=== PATIENT | male | born 1940 | race Caucasian/White ===

== ENCOUNTER 2024-01-27 08:34 | Day surgery (SDC) | payer OTHER, SELFPAY ==
[2024-01-27] VITALS (12 sets, daily range): BP systolic 126–142; BP diastolic 66–79; BMI 26.8
--- NOTE | 2024-01-27 11:14 | ITS.CL.CATH ---
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
Cardiac Catheterization
Procedure Report:
CARDIAC CATHETERIZATION REPORT
Date of Procedure: 01/27/2024
Referring: Indra Webb MD
Indication: Symptomatic severe aortic stenosis
�
HEMODYNAMIC DATA
AO: 140/78
LV: 198/21
The mean gradient across the aortic valve is 52 mmHg
�
LEFT VENTRICULOGRAPHY: Normal left ventricular wall motion with EF 58%
�
CORONARY ANGIOGRAPHY
Dominance: Right
Left Main: Normal
LAD: The LAD is severly calcified with 50% proximal LAD stenosis just past the takeoff of a small D1. There is focal 70% mid LAD stenosis just distal to the takeoff of the large D2. The remainder of the LAD system has trivial luminal disease.
Circumflex: 20% mid circumflex stenosis distal to the takeoff of the large OM1. The circumflex gives rise to a large OM1 which has 20% proximal stenosis, small OM 2, and a very large OM 3 which has mild luminal irregularities. The circumflex
terminates with several small left posterolateral branches
RCA: Large dominant severely calcified vessel with no significant disease
�
Closure Device: None-the procedure was performed via the right radial artery. The Donato's test was normal prior to the procedure.
�
Radiation (mGy): 218
DAP (cm2.Gy): 18.6
Fluoroscopy time: 2.0 minutes
�
CONCLUSIONS
1:�Severe aortic stenosis with mean gradient 52 mmHg
2:�Normal left ventricular function with EF 58%
3. Single-vessel CAD as described-there is 50% proximal LAD stenosis and 70% stenosis immediately distal to the takeoff of the large second diagonal branch
4. Recommend medical therapy for CAD and proceed with transcatheter aortic valve replacement workup
�
�
Copy to: Indra Webb MD, Clarisa Ramos MD
�
Adam Doe MD, MERGED WITH [facility]
--- NOTE | 2024-01-27 11:59 | CONSULT.STRU ---
Consultation
-
Date/Time Consultation Requested: 01/27/2024
Date/Time Consultation Performed: 01/27/2024
Requesting Provider: Adam Doe MD
Performing Provider: JAX Bravo
Reason for Consultation: /TAVR
Patient History
Physicians
Family Physician: JAX Galindo
Outpatient Artificial Flowers Dyer: Indra Webb MD
Primary Artificial Flowers Dyer: Indra Webb MD
History of Present Illness
Mr. Colbert is a very pleasant 83 yom that presents with severe symptomatic associated with STREETER and fatigue noticeably worse over the last 3 months. His echocardiogram from 01/27/2024 is notable for an EF 55-60%, AV P/M 70/45, WARREN 0.9, pk mihai
4.19, trivial AI, mild to moderate MAC, trace MR, trivial TR, RVSP 26. Cath findings significant for Single-vessel CAD as described-there is 50% proximal LAD stenosis and 70% stenosis immediately distal to the takeoff of the large second diagonal
branch, AV MG 52mmHg. Discussed the pathophysiology and treatment options of including SAVR and TAVR. Explained the evaluation process comprising of CT scan, CT surgical consult, dental clearance, and a heart team discussion. TAVR booklet,
appointments, prescriptions, and contact information given to patient. Allowed for and answered questions at bedside.
Past Medical History
Past Medical History: Atrial Fib (PAF (C2V: 4)), HTN, Valvular Disease (Aortic stenosis) and Other ((L) carotid stenosis, hyperlipidemia, venous insufficiency, varicose veins, hyponatremia, pleural effusions)
Past Surgical History
Past Surgical History: Appendectomy, Tonsilectomy and Other (Stripping and ligation on LLE)
Dental History
Dr. Benny Hoffman- [facility]-dental form faxed
Family History
Mother: at Age (75) and Cause of (COPD)
Father: at Age (77) and Cause of (Stroke)
Family Medical History: Cancer
Social History
Alcohol: Occasional
Drug: None
Tobacco: Non-Smoker
Personal:
Living: With Spouse
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
Allergies
NKDA
Home Medications
Aspirin 81 MG Tablet Delayed Release 1 tablet Orally Once a day
Atorvastatin Calcium 40 MG Tablet 1 tablet Orally Once a day
Calcium + D(Calcium-Vitamin D-Vitamin K) 500-1000-40 MG-UNT-MCG Tablet Chewable as directed Orally Once a Day
Eliquis(Apixaban) 5 MG Tablet TAKE 1 TABLET Twice a day
Metoprolol Succinate ER 100 MG Tablet Extended Release 24 Hour 1 tablet Orally Once a day
Sodium Chloride , Notes to Pharmacist: 1 gram 4 times a day
STS%
STS %: 2.59
Review of Systems
-
History Source: Patient
General: Reports Fatigue
HEENT: Reports No Symptoms
Respiratory: Reports STREETER
Cardiac: Reports No Symptoms
Abdomen/GI: Reports No Symptoms
: Reports No Symptoms
Musculoskeletal: Reports No Symptoms
Skin: Reports No Symptoms
Neurological: Reports No Symptoms
Physical Exam
Vital Signs
Pulse 74 01/27/24 08:51
Resp Rate 18 01/27/24 08:51
Blood pressure 126/79 01/27/24 08:51
Can the patient verbally communicate their pain? Yes 01/27/24 08:51
Actual Weight 77.5 kg 01/27/24 08:51
Body Mass Index (BMI) 26.8 01/27/24 08:51
Labs
01/20/2024
HH: 13.1/38.5
Plt: 130K
BUN/Creatinine: 11/0.85
GFR: >60
Diagnostic Studies
ECHOCARDIOGRAM 01/08/2024:
CONCLUSIONS
1. Normal chamber sizes.
2. Severe aortic stenosis
3. Normal left and right ventricular systolic function.
4. Normal right ventricular systolic pressure.
Aortic Valve
Thickened/calcified and deformed aortic valve that exhibits decreased opening.
Trivial aortic insufficiency. Peak aortic valve gradient is 70 mmHg with a
mean gradient of 45 mmHg. The aortic valve area calculated by continuity is
0.9 cm2. These findings are suggestive of severe stenosis
CARDIAC CATHETERIZATION 01/27/2024:
CONCLUSIONS
1:�Severe aortic stenosis with mean gradient 52 mmHg
2:�Normal left ventricular function with EF 58%
3. Single-vessel CAD as described-there is 50% proximal LAD stenosis and 70% stenosis immediately distal to the takeoff of the large second diagonal branch
4. Recommend medical therapy for CAD and proceed with transcatheter aortic valve replacement workup
Exam
General: Well Developed, Well Nourished and No Apparent Distress
HEENT: Normocephalic
Respiratory: Clear
Cardiac: Irregular Rhythm and Murmur (IV/ ART)
GI: Soft, Non Tender and Non Distended
Rectal: Deferred by Provider
Skin: Warm and Dry
Neuro: Awake, Alert, Oriented and AO x 3
Psych: Calm
Assessment / Plan
-
Severe aortic stenosis
Continue TAVR evaluation
Trend creatinine after contrast (Rx given)
CT TAVR (02/09)
CT surg consult ( [facility] 02/09)
Frailty testing and KCCQ12 at consult
Dental clearance (form faxed)
Will hold Eliquis x 48 before TAVR
Heart team discussion
Data Reviewed
-
Entertainment & Media Correspondent: Report Reviewed by me and Discussed with Physician
Echo: Report Reviewed by me and Discussed with Physician
Labs: Labs Reviewed by me
Old Records: Reviewed (Office note from Dr. Webb and Dr. Doe)
Total Time Spent with Patient (in minutes): 45
== END 2024-01-27 14:39 | disposition home or self-care (01) ==
LOC: CATH 08:34
PROVIDERS: ATTENDING PHYSICIAN Internal Medicine Cardiovascular Disease; FAMILY PHYSICIAN Nurse Practitioner Family; OTHER PHYSICIAN Internal Medicine Cardiovascular Disease
DX: I35.0 Nonrheumatic aortic (valve) stenosis (principal); R06.09 Other forms of dyspnea; R53.83 Other fatigue; I25.10 Atherosclerotic heart disease of native coronary artery without angina pectoris; E87.1 Hypo-osmolality and hyponatremia; E78.5 Hyperlipidemia, unspecified; I48.0 Paroxysmal atrial fibrillation; I10 Essential (primary) hypertension; J90 Pleural effusion, not elsewhere classified; I65.22 Occlusion and stenosis of left carotid artery; I87.2 Venous insufficiency (chronic) (peripheral); I83.90 Asymptomatic varicose veins of unspecified lower extremity; Z82.3 Family history of stroke; Z79.01 Long term (current) use of anticoagulants; Z79.899 Other long term (current) drug therapy; Z79.82 Long term (current) use of aspirin
CPT/HCPCS: 93458; Q9967

== ENCOUNTER → 2024-02-10 09:40 | Outpatient (REF) | payer OTHER, SELFPAY | LOC: RAD 09:40 | PROVIDERS: ATTENDING PHYSICIAN Nurse Practitioner Acute Care; FAMILY PHYSICIAN Nurse Practitioner Family | DX: I35.0 Nonrheumatic aortic (valve) stenosis (principal) | CPT/HCPCS: 74174; 75572; Q9967 ==

== ENCOUNTER 2024-04-02 05:23 | Inpatient (IN) | payer OTHER, SELFPAY ==
--- NOTE | 2024-03-23 16:14 | HPS.HSE ---
Family Physician
-
Family Physician: Clarisa Ramos
Chief Complaint
-
STREETER and Fatigue
PreTAVR
History of Present Illness
Mr. Colbert is a very pleasant 83 yom that presents with severe symptomatic associated with STREETER and fatigue noticeably worse over the last 3 months. His echocardiogram from 01/27/2024 is notable for an EF 55-60%, AV P/M 70/45, WARREN 0.9, pk mihai
4.19, trivial AI, mild to moderate MAC, trace MR, trivial TR, RVSP 26. Cath findings significant for Single-vessel CAD as described-there is 50% proximal LAD stenosis and 70% stenosis immediately distal to the takeoff of the large second diagonal
branch, AV MG 52mmHg. Patient was reviewed and evaluated by the heart team. The team recommended TF TAVR utilizing a 29mm S3.
Confirmed medication list with Mr. Colbert. He will hold Eliquis x 48 hours (last dose Wednesday 03/29, pm dose), and continue aspirin including the morning of TAVR. He will [facility] to [facility] the [facility] at 0530. Reviewed
risks of the procedure as discussed in consult with Dr. Giron including stroke, ppm, and vascular injury. Informed patient that he will receive a phone call from the heart team on Friday before TAVR. Allowed for and answered questions.
Medical History
Past Medical History
Past Medical History: Reports HTN, Valvular Disease (aortic stenosis) and Other (Venous insufficiency, Bilateral carotid bruits, hyponatremia, varicose veins, moderate (L) carotid stenosis, pleural effusions)
Past Surgical History: Reports Appendectomy, Tonsilectomy and Other (Stripping and ligation on (L) leg, oral surgery)
Social History
Tobacco: Non-smoker
Alcohol: Daily (one glass of wine)
Drug: None
Personal:
Living: With Family
Employment: Retired
Family History
Family History: Cancer
Allergies / Home Medications
Allergies reflects when Allergies were last updated in [facility].
Aspirin 81 MG Tablet Delayed Release 1 tablet Orally Once a day
Atorvastatin Calcium 40 MG Tablet 1 tablet Orally Once a day
Calcium + D(Calcium-Vitamin D-Vitamin K) 500-1000-40 MG-UNT-MCG Tablet Chewable as directed Orally Once a Day
Eliquis(Apixaban) 5 MG Tablet TAKE 1 TABLET Twice a day
Metoprolol Succinate ER 100 MG Tablet Extended Release 24 Hour 1 tablet Orally Once a day
Sodium Chloride 1 GM Tablet as directed Orally Four times a day 2000 mg, Notes to Pharmacist: 2000mg four times a day
Home Medications with original date entered in [facility]
Allergy/Medication List:
NKDA
Review of Systems
-
History Source: Patient
Constitutional: Reports Fatigue
EENT: Reports No Symptoms
Respiratory: Reports Trouble Breathing (STREETER)
Cardiac: Reports No Symptoms
Abdomen/GI: Reports No Symptoms
: Reports No Symptoms
Musculoskeletal: Reports No Symptoms
Skin: Reports No Symptoms
Neurological: Reports No Symptoms
Endocrine: Reports No Symptoms
Hematologic/Lymphatic: Reports No Symptoms
Psych: Reports No Symptoms
Physical Exam
Physical Exam
General: Well Developed, Well Nourished, No Apparent Distress and Comfortable
HEENT: NormoCephalic
Respiratory: Clear
Cardiac: Regular Rhythm and Murmur (IV/ ART)
Breast: N/A
GI: Soft and Non Tender
Rectal: Deferred by Provider
Genito-urinary: Deferred by me
Musculoskeletal: Edema, Left Lower Extremity
Skin: Warm and Dry
Neuro: Awake, Alert and Oriented
Psych: Calm
Data Reviewed
-
CT Scan: Report Reviewed by me and Discussed with Physician (TAVR CT scan reviewed and discussed with the heart team)
Medical Tests (Nuc Med, Echo, EKG etc): Report Reviewed by me and Discussed with Physician (Echocardiogram and cardiac catheterization reviewed and discussed with the heart team)
Lab Data: Labs Reviewed by me
Old Records: Reviewed
Impression/Plan
-
IMPRESSION/PLAN:
Aortic stenosis
TF TAVR planned with Drs. Thomas and Mack georgezing a 29 mm S3 via (R) transfemoral access
Eliquis held x 48 hours (last dose Friday 2/3 pm). Will resume post TAVR
Continue Aspirin including the morning of TAVR
POD#1/#30 echocardiogram
Cardiac rehab consult
Lab Results
-
Lab Results
WBC 4.7 10^3/uL (4.8-10.8) L 03/24/24 12:41
RBC 3.79 10^6/uL (4.70-6.10) L 03/24/24 12:41
Hgb 12.3 g/dL (13.0-18.0) L 03/24/24 12:41
Hct 36.1 % (39.0-52.0) L 03/24/24 12:41
MCV 95.3 fL (80.0-94.0) H 03/24/24 12:41
MCH 32.5 pg (27.0-31.0) H 03/24/24 12:41
MCHC 34.1 g/dL (33.0-37.0) 03/24/24 12:41
RDW 12.7 % (11.5-14.5) 03/24/24 12:41
Plt Count 127 10^3/uL (130-400) L 03/24/24 12:41
MPV 10.3 fL (7.4-10.4) 03/24/24 12:41
Abs Immat Gran (auto) 0.0 10^3/uL (0-0.05) 03/24/24 12:41
Absolute Neuts (auto) 2.6 10^3/uL (1.4-6.5) 03/24/24 12:41
Absolute Lymphs (auto) 1.2 10^3/uL (1.2-3.4) 03/24/24 12:41
Absolute Monos (auto) 0.6 10^3/uL (0.1-0.6) 03/24/24 12:41
Absolute Eos (auto) 0.2 10^3/uL (0-0.7) 03/24/24 12:41
Absolute Basos (auto) 0.0 10^3/uL (0-0.2) 03/24/24 12:41
Immature Gran % 0.2 % (0-0.5) 03/24/24 12:41
Neutrophils % 56.7 % (42.2-75.2) 03/24/24 12:41
Lymphocytes % 26.6 % (20.5-51.1) 03/24/24 12:41
Monocytes % 11.8 % (1.7-9.3) H 03/24/24 12:41
Eosinophils % 4.1 % (0-6) 03/24/24 12:41
Basophils % 0.6 % (0-2) 03/24/24 12:41
Nucleated RBC % 0 % (-) 03/24/24 12:41
PT 15.6 Sec (11.4-14.6) H 03/24/24 12:41
INR 1.19 03/24/24 12:41
APTT 38.3 Sec (23.4-35.0) H 03/24/24 12:41
Urine Color Yellow 03/24/24 12:49
Urine Clarity Clear (Clear) 03/24/24 12:49
Urine pH 7.0 (5.0-9.0) 03/24/24 12:49
Ur Specific [place] 1.010 (<1.030) 03/24/24 12:49
Urine Ketones Negative (Negative) 03/24/24 12:49
Ur Occult Blood Reflex Negative (Negative) 03/24/24 12:49
Urine Nitrite (Reflex) Negative (Negative) 03/24/24 12:49
Urine Bilirubin Negative (Negative) 03/24/24 12:49
Urine Urobilinogen Negative (Neg - 1+) 03/24/24 12:49
Leukocyte Esterase Rfl Negative (Negative) 03/24/24 12:49
Urine Glucose Negative (Negative) 03/24/24 12:49
Urine Albumin (Reflex) Negative (Neg - Trace) 03/24/24 12:49
[2024-03-24 12:32] VITALS: BMI 26.0
[2024-03-24 13:18] LABS: Urine Albumin Negative (Neg - Trace); Urine Bilirubin Negative (Negative); Urine Character Clear (Clear); Urine Color Yellow; Urine Glucose Negative (Negative); Urine Ketone Negative (Negative); Urine Leukocyte Negative (Negative); Urine Nitrite Negative (Negative); Urine Occult Blood Negative (Negative); Urine Urobilinogen Negative (Neg - 1+)
[2024-03-24 13:24] LABS: % Basophils 0.6 % (0-2); % Eosinophils 4.1 % (0-6); % Immature Granulocytes 0.2 % (0-0.5); % Lymphocytes 26.6 % (20.5-51.1); % Monocytes 11.8 % (1.7-9.3); % Neutrophils 56.7 % (42.2-75.2); Absolute Eosinophils 0.2 10^3/uL (0-0.7); Absolute Lymphocytes 1.2 10^3/uL (1.2-3.4); Absolute Monocytes 0.6 10^3/uL (0.1-0.6); Absolute Neutrophils 2.6 10^3/uL (1.4-6.5); Hematocrit 36.1 % (39.0-52.0); Hemoglobin 12.3 g/dL (13.0-18.0); Mean Corp Hgb Conc. 34.1 g/dL (33.0-37.0); Mean Corpuscular Hgb 32.5 pg (27.0-31.0); Mean Corpuscular Volume 95.3 fL (80.0-94.0); Mean Platelet Volume 10.3 fL (7.4-10.4); Nucleated Red Blood Cells % 0 % (-); Platelet Count 127 10^3/uL (130-400); Red Blood Cell Count 3.79 10^6/uL (4.70-6.10); Red Cell Dist. Width 12.7 % (11.5-14.5); White Blood Cell Count 4.7 10^3/uL (4.8-10.8)
[2024-03-24 13:33] LABS: INR 1.19; PT 15.6 Sec (11.4-14.6)
[2024-03-24 13:34] LABS: APTT 38.3 Sec (23.4-35.0)
[2024-03-24 14:08] LABS: NT-proBNP 2630 pg/ml
[2024-03-24 14:31] LABS: Glycohemoglobin (HgbA1c) 4.7 % (4.0-5.6)
[2024-03-24 14:43] LABS: ALT (SGPT) 24 U/L (0-50); AST (SGOT) 34 U/L (17-59); Albumin 4.1 g/dl (3.5-5.0); Alkaline Phosphatase 83 U/L (38-126); Blood Urea Nitrogen 9 mg/dl (9-20); Calcium 8.6 mg/dl (8.4-10.2); Carbon Dioxide 28 mmol/L (22-30); Chloride 95 mmol/L (98-107); Estimated Creatinine Clearance 79 ml/min; Glucose 129 mg/dl (70-99); Potassium 4.5 mmol/L (3.5-5.1); Sodium 131 mmol/L (135-145); Total Bilirubin 1.2 mg/dl (0.2-1.3); Total Protein 6.8 g/dl (6.3-8.2); eGFR > 60.00
--- NOTE | 2024-03-24 15:12 | CM ---
Chart reviewed. Met with the patient and his in a PAT. Reviewed preoperative and postoperative instructions and restrictions, along with showering guidelines. Gave patient 2 soaps. Patient is agreeable to a home visit by CT Transitional
RN. 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 Plan is for the patient to return home with CT Transitional RN.
[2024-04-02] VITALS (21 sets, daily range): BP systolic 95–176; BP diastolic 51–80; BMI 25.1
--- NOTE | 2024-04-02 06:12 | PTCARENOTE ---
SDA to IVU for TAVR. L and R B\P obtained. Pt shave and CHG wipes used. ABO sent. Tele strip obtained. Neuro intact.
--- NOTE | 2024-04-02 06:24 | W.CVOR.SURPR ---
CVOR Surgeon Immed Pre Op
-
I have examined this patient prior to performance of the scheduled procedure.
The patient's condition is unchanged from the time of the dictated/written History and
Physical and the patient is able to undergo the scheduled procedure.
[2024-04-02 08:22] LABS: ACT-LR - POC 345 Seconds (116-155)
--- NOTE | 2024-04-02 08:43 | W.IMMPOSTOP ---
Addendum entered and electronically signed by Orville Giron MD 04/02/24 09:07:
[id number]
Original Note:
Surgical Immed Post Op Note
-
STRUCTURAL HEART PROCEDURE NOTE: TAVR
Preoperative Dx:
Severe aortic stenosis (P/M: 70/45, WARREN 0.9, Finishing Area Supervisor 4.19, trivial AI)
Left carotid stenosis
PAF on Eliquis
HTN/HLD
Venous insufficiency s/p stripping and ligation LLE
Hyponatremia
Pleural effusion
Postoperative Dx:
Same
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
Procedures:
1) L CFV access w/ U/S and fluoroscopic guidance, micropuncture technique, 6Fr sheath placement
2) L EDUCATION AND TRAINING MANAGER access w/ tactile, U/S, and fluoroscopic guidance, micropuncture technique, limited angiography, 6Fr sheath placement
3) Placement of temporary RV pacing wire, threshold testing
4) Placement of pigtail catheter in RCC w/ limited aortography & confirmation of co-planar valve deployment angles
5) R EDUCATION AND TRAINING MANAGER access w/ tactile, U/S, and fluoroscopic guidance, micropuncture technique, limited angiography, 6Fr sheath placement.
6) 8Fr dilator & perclose placement x 2 into R EDUCATION AND TRAINING MANAGER; 8Fr sheath placement
7) Placement of Sims E-sheath via R EDUCATION AND TRAINING MANAGER (systemic heparinization)
8) Wire purchase across stenotic AV (AL-1, soft-tip straight, table-J, LVEDP assessment, extra-stiff)
9) R TF TAVR w/ placement of 29mm CHRIS 3
10) Completion aortography
11) Completion TTE (mean gradient 3mmHg, trace PVL)
12) Removal of valve delivery system & Sims E-sheath w/ R EDUCATION AND TRAINING MANAGER mgmt w/ perclose x 2, 6Fr angioseal x 1, manual pressure
13) Completion R ileofemoral angiography
14) Removal of temporary pacing wire
15) Removal of L EDUCATION AND TRAINING MANAGER 6Fr sheath w/ mgmt w/ 6Fr angioseal; manual pressure
16) Removal of L CFV 6Fr sheath w/ mgmt w/ manual pressure
Escrow Representative:
Dr. Ritesh Thomas
Cardiac Surgeon:
Dr. Orville Giron
Anesthesia:
MAC & local w/ conversion to LMA
Complications:
None
Implants:
Perclose x 2 R EDUCATION AND TRAINING MANAGER
6Fr angioseal x 1 R EDUCATION AND TRAINING MANAGER
6Fr angioseal x 1 L EDUCATION AND TRAINING MANAGER
Sims [employer], CHRIS 3 valve 29mm; SN [id number]
Cath Data:
Start: 0747hrs, Deploy: 0823hrs, End: 0839hrs
FT: 11.8min, mGy: 231.91, DAP: 25.0501, Contrast: 107
Post TTE: trace PVL, mean gradient 3mmHg
LVEDP: 26
Condition:
Stable/guarded
--- NOTE | 2024-04-02 09:52 | ITS.CL.PN ---
Insulation Worker Furnace Installer - Procedure Note
Procedure
Procedure Note:
TRANSCATHETER AORTIC VALVE REPLACEMENT REPORT
Date of Procedure: 04/02/2024
Referring: Dr. Indra Webb MD
Indication: Symptomatic severe aortic stenosis
Operators: Ritesh Thomas MD, PhD (interventional cardiology); Dr. Orville Giron MD (CT surgery)
Anesthesia: conscious sedation provided by the anesthesia staff
PROCEDURE: transfemoral, transcatheter aortic valve replacement with a 29 mm Sims CHRIS S3 Ultra
ACCESS:
1. 6F left femoral vein (closure: manual hemostasis)
2. 6F left common femoral artery (closure: Angioseal)
3. 16 F right common femoral artery (closure: Perclose x2)
ULTRASOUND GUIDED VASCULAR ACCESS (left common femoral artery): Ultrasound was utilized for vascular access. The vessel was visualized under ultrasound and noted to be patent. An image of the vessel was stored permanently in the patient's medical
record. Under direct ultrasound guidance, vascular access was obtained using a modified Seldinger technique and a 6 Macedonian sheath was placed.
ULTRASOUND GUIDED VASCULAR ACCESS (left femoral vein): Ultrasound was utilized for vascular access. The vessel was visualized under ultrasound and noted to be patent. An image of the vessel was stored permanently in the patient's medical record.
Under direct ultrasound guidance, vascular access was obtained using a modified Seldinger technique and a 6 Macedonian sheath was placed.
ULTRASOUND GUIDED VASCULAR ACCESS (right common femoral artery): Ultrasound was utilized for vascular access. The vessel was visualized under ultrasound and noted to be patent. An image of the vessel was stored permanently in the patient's medical
record. Under direct ultrasound guidance, vascular access was obtained using a modified Seldinger technique and a 6 Macedonian sheath was placed.
HEMODYNAMIC DATA
LV 28 mmHg
PROCEDURE NARRATIVE:
The patient was prepped and draped in standard sterile fashion. Conscious sedation was provided by the anesthesia staff. 6F left femoral vein and left common femoral artery access was obtained with ultrasound guidance using micropuncture technique
with verification of appropriate arteriotomy location via hand injection angiography. A temporary venous pacing wire was advanced via the left femoral vein to the right ventricle under fluoroscopic guidance with appropriate capture verified. A 5F
pigtail catheter was advanced via the left common femoral artery and seated in the right coronary cusp. Angiography was performed to verify the co-planar angle.
8F right common femoral artery access was obtained with ultrasound guidance using micropuncture technique with verification of appropriate arteriotomy location via hand injection angiography. The arteriotomy was preclosed with two Perclose sutures
followed by replacement of the 8F sheath. Using an AL1 catheter, an Amplatz Superstiff wire was placed in the descending thoracic aorta. The 8F sheath was removed and the 16 F Sims E-sheath was inserted over the Superstiff wire and into the
descending aorta. Heparin 6500 units was given. The AL1 catheter was re-advanced through the E-sheath to the level of the ascending aorta. The Superstiff wire was exchanged for a soft tipped straight wire which was used to cross the aortic valve and
deposit the AL1 in the LV apex. A J-wire was used to exchange the AL1 for a pigtail catheter in the LV and LVEDP was measured at 26 mmHg. An Amplatz Extrastiff wire with curved proximal end was advanced through the pigtail catheter and seated in the
LV apex. ACT was checked and confirmed to be >250 seconds.
The valve was brought to the table with orientation and deployment contrast volume verified. The valve was advanced over the Extrastiff wire and into the descending aorta. The balloon was withdrawn, and the valve was mounted on the balloon. The
valve was advanced over the aortic arch and into the aortic valve annulus. The pusher device was withdrawn. Low volume aortography confirmed valve positioning. The valve was deployed during rapid ventricular pacing. The balloon was walked back to
the descending aorta while leaving the wire in place. The patient was resuscitated by anesthesia with recovery of adequate blood pressure. Telemetry demonstrating stable left bundle branch block and sinus rhythm. Aortography demonstrated good valve
positioning, adequate coronary filling, and trace aortic valve insufficiency. Echocardiography confirmed trace aortic insufficiency. Mean valve gradient was 3 mmHg. The valve deployment system was removed.
The Sims E sheath was removed, and hemostasis obtained with the two Perclose sutures. Protamine 40 units was given. Aortoiliac angiography demonstrated no evidence of iliofemoral dissection/perforation and good runoff below the common femoral
artery bilaterally. The pacemaker and the pigtail catheter were removed. The left femoral artery sheath was removed using a 6F Angioseal. The left femoral venous sheath was removed with manual pressure.
RADIATION: dose 231 mGy; DAP 25 Gy*cm2
CONCLUSIONS
1. successful placement of an Sims CHRIS S3 Ultra 29 mm transcatheter aortic valve via right transfemoral approach with no acute complications
2. acute on chronic heart failure with elevated filling pressures (LVEDP = 26)
Copy to: Dr. Indra Webb MD (business process architect); JAX Galindo (PCP)
Signed: Ritesh Thomas MD, PhD
--- NOTE | 2024-04-02 10:45 | CM ---
Chart reviewed. Patient is independent of ADLS, lives with his in a [address], total of 8 ADDI, 0 DME. Plan is for the patient to return home with CT Transitional RN. CM to follow
--- NOTE | 2024-04-02 11:31 | W.PN.UPDATE ---
Update Note
Progress Note Update
Reviewed [employer] monitor with patient's . Went over how to apply, charge, report symptoms and return the monitor after the 14 day period. Allowed for and answered questions
--- NOTE | 2024-04-02 12:25 | PTCARENOTE ---
Received pt post TAVR. NIH scale and neuro checks negative. GCS 15. B/L groin sites w/ clean and dry 4x4 with tegaderns. Left groin dressing w/ old small amout of blood noted, unchanged and marked. VSS. Pt very sleepy. Will monitor.
[2024-04-02] MEDS: ANCEF 10 IV ×2 (14:19)
[2024-04-02] MEDS: LIPITOR 40 MG PO (14:20)
[2024-04-02] MEDS: ANCEF 5 IV (14:56)
[2024-04-02] MEDS: SODIUM CHLORIDE 2 GRAM PO (19:41)
--- NOTE | 2024-04-02 20:16 | PTCARENOTE ---
pt received at change of shift. pt seen and assessed in room. b/l groins checked. L groin w minimal sanguineous drainage, R groin c/d/i. No complaints of pain from pt at this time. Tele reading NSR. Pt. AOx3, neuro checks completed. This RN
discussed POC, pt verbalizes understanding. Call hernandez within reach. Continuing to monitor at this time.
[2024-04-03] VITALS (13 sets, daily range): BP systolic 112–177; BP diastolic 53–109; PULSE 87; O2SAT 95–96; BMI 25.1
[2024-04-03 03:08] LABS: Hematocrit 33.3 % (39.0-52.0); Hemoglobin 11.8 g/dL (13.0-18.0); Mean Corp Hgb Conc. 35.4 g/dL (33.0-37.0); Mean Platelet Volume 10.2 fL (7.4-10.4); Platelet Count 124 10^3/uL (130-400); Red Blood Cell Count 3.58 10^6/uL (4.70-6.10); Red Cell Dist. Width 12.5 % (11.5-14.5); White Blood Cell Count 6.3 10^3/uL (4.8-10.8)
[2024-04-03] MEDS: APRESOLINE 5 MG IV (03:17)
[2024-04-03 03:19] LABS: Blood Urea Nitrogen 12 mg/dl (9-20); Calcium 8.4 mg/dl (8.4-10.2); Carbon Dioxide 22 mmol/L (22-30); Chloride 97 mmol/L (98-107); Estimated Creatinine Clearance 92 ml/min; Glucose 110 mg/dl (70-99); Potassium 4.2 mmol/L (3.5-5.1); Sodium 129 mmol/L (135-145); eGFR > 60.00
--- NOTE | 2024-04-03 06:21 | W.PN.CT ---
Addendum entered and electronically signed by Orville Giron MD 04/03/24 09:16:
I saw and examined the patient.
The PA's note was reviewed and I agree with the note.
Comment:
POD#1 s/p R TF TAVR w/ 29 S3
No issues. 1AVB and LBBB resolved.
Pt. w/ known chronic hyponatremia (typically low 130s) - given additional sodium
Echocardiogram today
Restart Eliquis
Rhythm Star on D/C
D/C home later today
Original Note:
Today's Communication / Plan
-
-pod #1
-no issues overnight
-nsr 70s, occasional PVCs. No juliette or pauses
-new transient 1st degree AVB and LBBB-both resolved. ECG this am appears at baseline.Toprol held post TAVR.
-Na 129 (131 preop)- fluid restriction
-Echo today
-current meds (ASA, Lipitor). Restart Eliquis for paf
-Rhythm Star monitor was left in pt's room
-encourage IS, OOB
-possible discharge
Assessment / Plan
-
- Severe symptomatic - s/p R TF TAVR w/ placement of 29mm CHRIS 3 on 04/02/24, pod #1
- Post TTE: trace PVL, mean gradient 3mmHg
- Acute on Chronic combined systolic/diastolic CHF w/ elevated LVEDP 26
- Left carotid stenosis
- PAF on Eliquis
- HTN/HLD
- Venous insufficiency- s/p stripping and ligation LLE
- Hyponatremia
- Pleural effusion
- Hyponatremia
- Acute transient postop 1st degree AVB and LBBB
Discussed patient care with: Nursing and Care Team
Subjective
Procedure
- s/p R TF TAVR w/ placement of 29mm CHRIS 3 on 04/02/24
-
Date of Service: April 02, 2024
Objective Data
-
Lab Results
03/24/24 12:41
03/24/24 12:41
PT 15.6 Sec (11.4-14.6) H 03/24/24 12:41
INR 1.19 03/24/24 12:41
APTT 38.3 Sec (23.4-35.0) H 03/24/24 12:41
Vital Signs
Vital Signs
Temp Pulse Resp BP Pulse Ox
98.4 F 79 20 165/80 99
04/02/24 22:55 04/02/24 22:55 04/02/24 22:55 04/02/24 22:52 04/02/24 22:55
CT Intake/Output/Weight
04/02/24 04/02/24 04/03/24
06:59 18:59 06:59
Intake Total 1500 / 1650 150 / 1650
Output Total 400 / 400
Balance 1500 / 1250 -250 / 1250
SaO2: 99
Physical Exam
-
General: Awake and AOx3
Cardiovascular: Regular rate & rhythm, No Murmurs and No Rub
Respiratory: Decreased Breath Sounds
Incision: Other (groins are cdi, soft, nontender, no hematoma)
Extremities: Other (trace edema with chronic venostasis)
Abdomen: soft, nontender, nondistended, + bowel sounds
Data Reviewed
-
Lab Results: Results Reviewed
Medications: Active Meds Reviewed
Chest X-Ray: Report Reviewed and Image Reviewed
ECG: Report Reviewed and Image Reviewed
[2024-04-03] MEDS: SODIUM CHLORIDE 2 GRAM PO ×2 (07:38→20:04)
--- NOTE | 2024-04-03 07:40 | W.PN.CD ---
Today's Communication / Plan
-
- ECHo today
- Metoprolol 50 mg QD today
- Likely discharge later
Impression / Plan
-
Severe symptomatic
- s/p R TF TAVR w/ placement of 29mm CHRIS 3 on 04/02/24
- Groins are normal without any vascular compromise and no hematoma.
- Pre-op Cath - Single-vessel CAD as described-there is 50% proximal LAD stenosis and 70% stenosis immediately distal to the takeoff of the large second diagonal branch, AV MG 52mmHg.
- Pre-op ECHO - 01/27/2024 is notable for an EF 55-60%, AV P/M 70/45, WARREN 0.9, pk mihai 4.19, trivial AI, mild to moderate MAC, trace MR, trivial TR, RVSP 26
- Post OP ECHO - today
- Post op transient 1st degree AV block and LBBB - both resolved. normal conduction noted this AM.
- OK to resume Metoprolol. Will start at 50 mg QD - home dose 100 mg QD.
- Acute on Chronic combined systolic/diastolic CHF
- Chronic with elevated LVEDP 26
- ECHO today with TAVR in place.
- Paroxysmal AF
- On Eliquis
- in sinus rhythm
- Resume Eliquis today
- Left carotid stenosis
- PAF on Eliquis
- HTN/HLD
- Venous insufficiency- s/p stripping and ligation LLE
- Hyponatremia
- Pleural effusion
- Hyponatremia
- Acute transient postop 1st degree AVB and LBBB
Physical Exam
Vital Signs/Labs
Vital Signs
Temp Pulse Resp BP Pulse Ox
98.4 F 93 18 143/71 97
04/03/24 07:21 04/03/24 04:45 04/03/24 07:21 04/03/24 04:33 04/03/24 07:21
04/02/24 04/03/24 04/04/24
06:59 06:59 06:59
Actual Weight 74.8 kg 75 kg
04/03/24 02:54
04/03/24 02:54
PT 15.6 Sec (11.4-14.6) H 03/24/24 12:41
INR 1.19 03/24/24 12:41
APTT 38.3 Sec (23.4-35.0) H 03/24/24 12:41
03/24/24
12:41
Otp-[id number]-[id number] Pept 2630
Physical Exam
Constitutional: No acute distress and Comfortable
EENT: Anicteric and Moist mucous membranes
Cardiovascular: Rhythm & rate is regular, Pedal edema is absent and JVD pressure is normal
Respiratory: Respiratory effort normal, Lungs clear to auscul. and Crackles Absent
GI: Soft, Non tender and Normal bowel sounds
Neuro/Psych: Alert, Motor deficits absent, Tremors and Other (confused but oriented. )
Other: Skin and Cath Site
Data Reviewed
-
Date of Service: April 03, 2024
Medical Decision Making: Reviewed Test Results, Independent Historian Assessment, Test Interpretation and Review of Case with other Provider
EKG: Tracing Personally Visualized and interpreted
Echo: Report Reviewed by me
X-Ray/CT/US/MRI/NUC/PET: Image Personally Visualized and interpreted
Labs: Labs Reviewed by me
Old Records: Reviewed
[2024-04-03] MEDS: ASPIR LOW (ENTERIC COATED) 81 MG PO (07:41)
[2024-04-03] MEDS: LIPITOR 40 MG PO (07:41)
[2024-04-03] MEDS: OSCAL 500 + D 500 MG PO (07:41)
--- NOTE | 2024-04-03 07:49 | W.PN.ANS.POP ---
Anesthesia Post Operative
- Anesthesia Post Op Note
Vital Signs Stable-See Nursing Note: Yes
Airway Patent: Yes
Adequate Pain Control: Yes
Change in Mental Status: No
Current Postoperative Nausea & Vomiting: No
Anesthesia Complications: No
General Anesthetic Recall: No
Unplanned Admission: No
Post Op Hydration Adequate: Yes
[2024-04-03] MEDS: ELIQUIS 5 MG PO ×2 (08:21→20:04)
[2024-04-03] MEDS: TOPROL XL 50 MG PO (08:21)
[2024-04-03] MEDS: SODIUM CHLORIDE 1 GRAM PO ×2 (08:47→18:06)
[2024-04-03 10:45] LABS: Glucose - Point of Care 154 mg/dl (70-99)
--- NOTE | 2024-04-03 10:55 | W.PN.UPDATE ---
Update Note
Progress Note Update
CARDIAC SURGERY ATTENDING:
Pt. noted to have neurologic changes with minor slurring of speech and confusion.
Stroke alert called.
CT-H being obtained.
Pt. on Eliquis and ASA
Hold on D/C
Neuro exams q1h
Appreciate the assistance and expertise of our neurology colleagues.
--- NOTE | 2024-04-03 10:55 | CON.NEURO ---
Neuro Assessment/Plan
Assessment
Abrupt onset confusion, aphasia, and tremulousness
Differential diagnosis includes toxic metabolic encephalopathy, acute ischemic stroke as the patient has just undergone TAVR procedure
Patient was not a candidate for tenecteplase or intra-arterial thrombectomy due to recent significant procedure and recent exposure to apixaban as well as absence of clot for retrieval
Plan
Check CT of head, completed
Check CTA head and neck, completed
Check blood work potential metabolic abnormality
Provide thiamine
Check MRI of brain
Continue apixaban and aspirin
Provide medical educational materials
Goal of normotension
Goal of normoglycemia
Will follow pending results.
Consultation
Order
Date of Consultation: 04/03/24
Requesting Provider: Cardiothoracic surgery
Reason for Consult: Stroke alert
Subjective/Objective
Subjective Data
Date of Service: April 03, 2024
Patient presented to this hospital to undergo TAVR procedure which she underwent successfully 1 day ago. The patient required the procedure, according to medical records, due to severe symptomatic aortic stenosis with dyspnea on exertion and
fatigue.
The patient today was in his usual state of health following the procedure until approximately 1015 at which time he suddenly felt flushed and began taking off clothes. He then became obviously confused and was unclear with speech leading to stroke
alert activation. The patient has been described as being slightly improved after the onset of symptoms. There are no other known associated symptoms. The patient is not known to have prior episodes which were similar.
Objective Data
Vital Signs
Temp Pulse Resp BP Pulse Ox
36.6 C 106 18 127/53 97
04/03/24 10:00 04/03/24 07:30 04/03/24 07:21 04/03/24 07:25 04/03/24 08:14
Lab Results
04/03/24 02:54
04/03/24 02:54
PT 15.6 Sec (11.4-14.6) H 03/24/24 12:41
INR 1.19 03/24/24 12:41
APTT 38.3 Sec (23.4-35.0) H 03/24/24 12:41
Sodium 129 mmol/L (135-145) L 04/03/24 02:54
Potassium 4.2 mmol/L (3.5-5.1) 04/03/24 02:54
BUN 12 mg/dl (9-20) 04/03/24 02:54
Glucose 110 mg/dl (70-99) H 04/03/24 02:54
Calcium 8.4 mg/dl (8.4-10.2) 04/03/24 02:54
Mis-Q-Jjjtwifykuj Pept 2630 pg/ml 03/24/24 12:41
Patient Allergies
No Known Allergies Allergy (Unverified 03/22/24 11:38)
CVA Assessment
Onset of Stroke Symptoms
Onset of symptoms known: Yes
Date of onset of symptoms: 04/03/24
Time of onset of symptoms: 10:17
Time pt last seen normal is known: Yes
Date last time pt seen normal: 04/03/24
Time last time pt seen normal: 10:17
NIH Stroke Score
Level of Consciousness: 0 - Alert
LOC Questions: 1-Answers one correctly
Tenecteplase Contraindications
Inclusion and Exclusion criteria reviewed: Yes
Reasons for NON-Tx with Thrombolytics ABSOLUTE Exclusions: Patient taking oral anticoagulant and last dose within 48 hours
Reasons for NON-Tx with Thrombolytics POSSIBLE Exclusions: Major surgery or serious trauma within proceding 14 days
Review of Systems
-
Unable to obtain full review of systems at this time due to: Aphasia
History Source: Patient
All other systems: Reviewed and negative
EENT: Negative Blurry Vision or Swallowing Difficulty
Respiratory: Negative Trouble Breathing
Cardiac: Negative Chest Pain
Abdomen/GI: Negative Incontinence of Stool
Genitourinary: Negative Incontinence
Musculoskeletal: Negative Back Pain or Neck Pain
Neuro: Negative Dizzy or Headache
Physical Exam
-
General: No Apparent Distress and Appears Stated Age
Eyes: Round OU, [place] Conjunctivae and No Ptosis; Negative Able to visualize OU
HEENT: Anicteric and Moist Mucous Membranes
Neck: Full Range of Motion
Respiratory: No Dyspnea
Cardiac: No JVD
GI: Non-distended
Skin: Unremarkable
Extremities: No Clubbing, No Cyanosis and No Edema
Psych: Intact Judgement/Insight
Extended Neurological Exam
Mood & Affect: Anxious
Attention Span & Concentration: Awake, Alert, Interactive, Mild Difficulty with 2 Step Request and Other (Minimal gap before able to perform actions)
Memory: Reduced (for location) and Unable to Recall Personal History
Tremor: Distal, Amplitude (medium) and With Action; Negative Head Tremor Absent (with arm movement) or At Rest
Involuntary Movement: None
Speech: Mildly Reduced Output and Other (intact phrase repetition)
Cranial Nerve II: Left Eye: Pupillary Reactivity Unremarkable, Pupillary Size Unremarkable and Unable to Assess Visual Cohen
Cranial Nerve II: Right Eye: Pupillary Reactivity Unremarkable, Pupillary Size Unremarkable and Unable to Assess Visual Cohen
Cranial Nerves III, IV, : Extraocular Movement: Extraocular Movement Full in all Directions
Cranial Nerve VII: Facial Symmetry: Normal Facial Symmetry
Cranial Nerve VIII: Hearing: Unremarkable Hearing to Normal Conversational Volume
Cranial Nerves IX, X: Palate Movement: Palate Elevation Symmetric
Cranial Nerve XI: Shoulder Shrug: Unable to Assess
Cranial Nerve XII: Tongue Protusion: Unable to Assess
Muscle Strength, Overall: Spontaneously Moves (All extremities)
Muscle Bulk & Tone: Bulk Unremarkable and Tone Unremarkable
Pronator Drift: No Drift in Upper Extremities and No Drift in Lower Extremities
Deep Tendon Reflexes: Trace Throughout
Coordination: [id number]-[id number]-ibvepd Testing Unremarkable
Babinski Sign: Absent Bilaterally
Data Reviewed
-
CT Head: Image Reviewed
MRI Head: Ordered and Image Reviewed
Labs: Report Reviewed
Reviewed with: Physician, Nurse and Patient
Old Records: Summarized
Medications
-
Active Medications
Generic Name Dose Route Start Last Admin
Trade Name Freq PRN Reason Stop Dose Admin
Acetaminophen 650 mg 04/02/24 08:58
Acetaminophen 325 Mg Tablet PO 04/30/24 08:57
Q4HPRN PRN
ZAVALA, mild pain, or fever >101F
Al Hydrox/Mg Hydrox/Simethicone 30 ml 04/02/24 08:58
Mag/Al/Simethicone Suspension 30 Ml Cup PO 04/30/24 08:57
Q4HPRN PRN
heartburn
Apixaban 5 mg 04/03/24 08:00 04/03/24 08:21
Apixaban (Eliquis) 5 Mg Tablet PO 05/01/24 07:59 5 mg
BID MARTIN Administration
Aspirin 81 mg 04/03/24 08:00 04/03/24 07:41
Aspirin 81 Mg (Enteric Coated) Tablet PO 05/01/24 07:59 81 mg
DAILY MARTIN Administration
Atorvastatin Calcium 40 mg 04/02/24 08:58 04/03/24 07:41
Atorvastatin (Lipitor) 40 Mg Tablet PO 04/30/24 08:57 40 mg
DAILY MARTIN Administration
Calcium/Vitamin D 500 mg 04/03/24 08:00 04/03/24 07:41
Calcium Carbonate 500 Mg/Vitamin D 5 Mcg (200 Units) Tablet PO 05/01/24 07:59 500 mg
DAILY MARTIN Administration
Hydromorphone HCl 0.25 mg 04/02/24 08:58
Hydromorphone 0.25 Mg/0.5 Ml Syringe IV 04/16/24 08:57
Q3HPRN PRN
severe pain
Norepinephrine Bitartrate 4 mg in 250 mls @ 0 mls/hr 04/02/24 09:30
Levophed IV
PER PROTOCOL MARTIN
Protocol
Per Protocol
Magnesium Hydroxide 30 ml 04/02/24 08:58
Milk Of Magnesia 30 Ml Cup PO 04/30/24 08:57
BIDPRN PRN
constipation
Metoprolol Succinate 50 mg 04/03/24 08:00 04/03/24 08:21
Metoprolol 50 Mg Extended Release Tablet PO 05/01/24 07:59 50 mg
DAILY MARTIN Administration
Ondansetron HCl 4 mg 04/02/24 08:58
Ondansetron 4 Mg/2 Ml Vial IV 04/30/24 08:57
Q8HPRN PRN
nausea/vomiting
Oxycodone HCl 2.5 mg 04/02/24 08:58
Oxycodone 5 Mg Regular Release Tablet PO 04/16/24 08:57
Q4HPRN PRN
moderate pain
Oxycodone HCl 5 mg 04/02/24 08:58
Oxycodone 5 Mg Regular Release Tablet PO 04/16/24 08:57
Q4HPRN PRN
severe pain
Sodium Chloride 2 gram 04/02/24 20:00 04/03/24 07:38
Sodium Chloride 1 Gram Tablet PO 04/30/24 19:59 2 gram
BID MARTIN Administration
Sodium Chloride 0 flush 04/03/24 08:00
Sodium Chloride 0.9% (Flush) Syringe IV 05/01/24 07:59
PER PROTOCOL MARTIN
Home Medications
�Medication �Instructions �Recorded
apixaban 5 mg tablet (Eliquis) 5 mg PO BID 01/27/24
sodium chloride 1,000 mg soluble 2,000 mg PO BID 03/22/24
tablet
acetaminophen 325 mg tablet 650 mg (2 x 325 mg) PO Q4HPRN PRN 04/02/24
ZAVALA, mild pain, or fever >101F #0
tabs
aspirin 81 mg capsule 81 mg PO DAILY Blood clot 04/02/24
prevention/tx #0 caps
atorvastatin 40 mg tablet 40 mg PO DAILY High cholesterol #0 04/02/24
tabs
calcium 500 mg (as 1 tab PO DAILY Supplement #0 tabs 04/02/24
carbonate)-vitamin D3 3.125 mcg
(125 unit) tablet
metoprolol succinate 50 mg 50 mg PO DAILY #30 tabs 04/03/24
tablet,extended release 24 hr
Past History
Past History
ED Past Medical History: Arrthythmia (Atrial fibrillation), HTN, Hypercholesterolemia and Other (Bilateral carotid bruits, hyponatremia, pleural effusions)
ED Past Surgical History: Appendectomy, Tonsilectomy and Other (Venous ligation left leg, oral surgery)
Social History
Alcohol: Daily (2 beers per day)
Personal:
Living: with family
Family History
Family History: Other (Reviewed and noncontributory)
[2024-04-03 11:11] LABS: ALT (SGPT) 13 U/L (0-50); AST (SGOT) 29 U/L (17-59); Albumin 3.8 g/dl (3.5-5.0); Alkaline Phosphatase 106 U/L (38-126); Blood Urea Nitrogen 12 mg/dl (9-20); Calcium 8.8 mg/dl (8.4-10.2); Carbon Dioxide 23 mmol/L (22-30); Chloride 99 mmol/L (98-107); Estimated Creatinine Clearance 79 ml/min; Glucose 124 mg/dl (70-99); Potassium 3.9 mmol/L (3.5-5.1); Sodium 130 mmol/L (135-145); Total Protein 7.1 g/dl (6.3-8.2); eGFR > 60.00
[2024-04-03 11:16] LABS: Hematocrit 36.4 % (39.0-52.0); Mean Corp Hgb Conc. 35.7 g/dL (33.0-37.0); Mean Corpuscular Hgb 33.4 pg (27.0-31.0); Mean Corpuscular Volume 93.6 fL (80.0-94.0); Red Blood Cell Count 3.89 10^6/uL (4.70-6.10); Red Cell Dist. Width 12.5 % (11.5-14.5); White Blood Cell Count 7.3 10^3/uL (4.8-10.8)
[2024-04-03 11:43] LABS: Mean Platelet Volume 10.1 fL (7.4-10.4); Platelet Count 130 10^3/uL (130-400)
[2024-04-03] MEDS: ATIVAN 1 MG IV (12:06)
[2024-04-03] MEDS: NSS (PRESERVATIVE FREE) 0.5 ML IV (12:08)
[2024-04-03] MEDS: THIAMINE INJECTION 100 MG IV (14:50)
--- NOTE | 2024-04-03 15:06 | PTCARENOTE ---
Pt reported he was feeling 'goofy' @ 07:25 and that he did this when his sodium was low. Pt oriented X 3, sodium 129. Pt given his scheduled dose , Gi MCNULTY notified and additional 1gram of sodium was given. At @10:00 pt found standing beside
his bed after taking his gown and monitor worker off. Pt with much increased tremors (baseline in his hands), pt seemed a little confused but was easily reoriented and redressed and sat in a chair. Pt agreed to walk with cardiac rehab with some
persuasion and walked in halls and up and down stairs without problem. At 10:37 pt with new garbled speech. HAMLET Contreras notified and came to see pt, rapid response called and soon after a stroke alert. Please see RAPID RESPONSE note. Accucheck
154, BP 170/82. Pt taken for CT scan. Sodium rechecked , now 130. Pt seen by . Pt given ativan IV and was taken for MRI with RN, heart monitored throughout. Pt appears very flushed but is afebrile. Pts and daughter at bedside, they
state that he drinks 0 alcohol beer adn 2 glasses of wine daily. NIHSS scores 2 for speech issues only. No other neuro deficit noted at this time.
[2024-04-03] MEDS: KCL 40 MEQ PO (17:40)
[2024-04-03 17:43] LABS: Blood Urea Nitrogen 9 mg/dl (9-20); Calcium 8.5 mg/dl (8.4-10.2); Carbon Dioxide 24 mmol/L (22-30); Chloride 96 mmol/L (98-107); Estimated Creatinine Clearance 92 ml/min; Glucose 111 mg/dl (70-99); Potassium 3.9 mmol/L (3.5-5.1); Sodium 126 mmol/L (135-145); eGFR > 60.00
[2024-04-03] MEDS: TYLENOL 650 MG PO (18:05)
--- NOTE | 2024-04-03 19:14 | PTCARENOTE ---
Pt sleeping for most of the afternoon, speech improved when he is woken. Sodium down to 126, additional 1gram given per Gi MCNULTY. (Pt has no difficulty swallowing). Telemetry shows sinus rhythm with first degree AV block, occasional PVC's.
--- NOTE | 2024-04-03 20:25 | PTCARENOTE ---
pt received at change of shift. pt seen and assessed in room. and daughter at bedside. pt arousable to voice, at this time pt AOx2 to self and time, not to place. tele reading NSR with occ. PVCs. pt has no complaints of pain at this time,
states he would 'like to go back to sleep'. able to give 8pm medication crushed up in apple sauce. this RN discussed POC with family, they verbalized understanding. bed alarm placed and activated. call hernandez within reach. continuing to monitor at
this time.
[2024-04-04] VITALS (8 sets, daily range): BP systolic 123–158; BP diastolic 63–89; BMI 25.2
[2024-04-04 02:44] LABS: Blood Urea Nitrogen 9 mg/dl (9-20); Calcium 8.4 mg/dl (8.4-10.2); Carbon Dioxide 23 mmol/L (22-30); Chloride 100 mmol/L (98-107); Estimated Creatinine Clearance 92 ml/min; Glucose 105 mg/dl (70-99); Potassium 4.2 mmol/L (3.5-5.1); Sodium 129 mmol/L (135-145); eGFR > 60.00
--- NOTE | 2024-04-04 03:08 | PTCARENOTE ---
pt AOx3 at 2am, following commands appropriately. lab work drawn, sodium resulting 129, d/w CT [employer]. no additional sodium tablets at this time. continuing to monitor at this time.
--- NOTE | 2024-04-04 05:28 | W.PN.CT ---
Addendum entered and electronically signed by Orville Giron MD 04/04/24 10:01:
I saw and examined the patient.
The PA's note was reviewed and I agree with the note.
Comment:
Will assess for potential D/C later today vs tomorrow
Neuro at baseline currently
Continue Eliquis/ASA
Rhythm Star on D/C
Tolerating home dose BB
Original Note:
Today's Communication / Plan
-
-pod #2
-stroke alert yesterday, noted confusion and aphasia. MRI showing scattered small acute infarcts but low serum Na thought to be more causative.
-Serum Na 129 this AM, joanne 126 yesterday. reporting he is sleepy but better, not at baseline yet. Continue NaCl tabs, 1500 cc fluid restriction. Thiamine added.
-Transient 1st degree AVB and LBBB-both resolved. ECG this am appears at baseline. Toprol 50 mg held post TAVR but now restarted/tolerating
-current meds (ASA, Lipitor). Eliquis restarted.
-Rhythm Star monitor was left in pt's room
-encourage IS, OOB
-possible discharge
Assessment / Plan
-
- Severe symptomatic - s/p R TF TAVR w/ placement of 29mm CHRIS 3 on 04/02/24, pod #2
- Post TTE: trace PVL, mean gradient 3mmHg
- Acute on Chronic combined systolic/diastolic CHF w/ elevated LVEDP 26
- Left carotid stenosis
- PAF on Eliquis
- HTN/HLD
- Venous insufficiency- s/p stripping and ligation LLE
- Hyponatremia
- Pleural effusion
- Hyponatremia
- Acute transient postop 1st degree AVB and LBBB
Subjective
Procedure
- s/p R TF TAVR w/ placement of 29mm CHRIS 3 on 04/02/24
-
Date of Service: April 04, 2024
Objective Data
-
Lab Results
04/03/24 10:55
04/04/24 02:16
PT 15.6 Sec (11.4-14.6) H 03/24/24 12:41
INR 1.19 03/24/24 12:41
APTT 38.3 Sec (23.4-35.0) H 03/24/24 12:41
Vital Signs
Vital Signs
Temp Pulse Resp BP Pulse Ox
98.6 F 78 16 145/88 93
04/04/24 03:03 04/04/24 04:30 04/04/24 03:03 04/04/24 04:29 04/04/24 03:03
CT Intake/Output/Weight
04/03/24 04/03/24 04/04/24
06:59 18:59 06:59
Intake Total 150 / 1650 120 / 170 50 / 170
Output Total 400 / 400 400 / 750 350 / 750
Balance -250 / 1250 -280 / -580 -300 / -580
SaO2: 93
Physical Exam
-
General: Awake
Cardiovascular: Regular rate & rhythm and No Murmurs
Respiratory: Clear and Equal
Incision: Clean, Dry and Intact
Extremities: Edema +1 and No Erythema
Data Reviewed
-
Lab Results: Results Reviewed
Medications: Active Meds Reviewed
Chest X-Ray: Report Reviewed
CT Scan: Report Reviewed
ECG: Report Reviewed
[2024-04-04] MEDS: ASPIR LOW (ENTERIC COATED) 81 MG PO (08:15)
[2024-04-04] MEDS: TOPROL XL 50 MG PO ×2 (08:15→17:16)
[2024-04-04] MEDS: OSCAL 500 + D 500 MG PO (08:15)
[2024-04-04] MEDS: THIAMINE INJECTION 100 MG IV (08:16)
[2024-04-04] MEDS: ELIQUIS 5 MG PO ×2 (08:16→19:46)
[2024-04-04] MEDS: LIPITOR 40 MG PO (08:16)
[2024-04-04] MEDS: SODIUM CHLORIDE 2 GRAM PO ×2 (08:16→17:16)
--- NOTE | 2024-04-04 09:11 | W.DCSUMMARY ---
Addendum entered and electronically signed by JAX Escalante 04/09/24 12:53:
Date of discharge 04/09/23
Original Note:
Documented by User: Gi Powers PA-C 04/05/24 07:12
Discharge Summary
Discharge Data
Date of Admission: 04/02/24
Date of Discharge: 04/05/24
Total time spent discharging patient (in min): 35
-
Pending Results: No
Hospital Course
Primary care physician:
JAX Zacarias
Outpatient bank clerk:
Dr. Indra Webb MD.
Inpatient consultants:
[facility]
Procedures:
1. Right transfemoral transcatheter aortic valve replacement with placement of number 29 mm Sims CHRIS [address] Orville Giron MD and Dr. Ritesh Deleon MD on 04/02/24
Primary Diagnosis:
1. Severe symptomatic aortic valve stenosis
2. Moderate left carotid stenosis
3. Paroxysmal atrial fibrillation on chronic anticoagulation with Eliquis
4. Hypertension
5. Hyperlipidemia
6. Venous insufficiency status post stripping and ligation of left lower extremity
7. History of hyponatremia
8. Pleural effusions
Secondary Diagnoses:
1. Severe symptomatic aortic valve stenosis
2. Moderate left carotid stenosis
3. Paroxysmal atrial fibrillation on chronic anticoagulation with Eliquis
4. Hypertension
5. Hyperlipidemia
6. Venous insufficiency status post stripping and ligation of left lower extremity
7. History of hyponatremia
8. Pleural effusions
HPI:
Patient is an 84-year-old male with severe symptomatic aortic valve stenosis. He was seen as an outpatient by the transcatheter aortic valve replacement team and deemed an appropriate candidate to undergo transcatheter aortic valve replacement. He
was admitted electively from home on 04/02/2024 for the procedure described above.
Hospital course:
Patient's postoperative hospital course was notable for CVA reflecting scattered small acute infarcts consistent with embolic pattern as well as hyponatremia with confusion and aphasia.
Patient underwent the procedure described above. Procedure was performed using conscious sedation. Patient tolerated the procedure well. He was transported from the cardiac catheterization lab and recovered in Standards Engineer holding. He was on a brief
course of Levophed which was titrated off. Postprocedure EKG revealed sinus rhythm (61 bpm), first-degree AV block and new left bundle branch block. Toprol XL was placed on hold. Patient was transferred to IVU.
On postoperative day #1 morning EKG revealed sinus rhythm (83 bpm) with nonspecific intraventricular conduction block. Patient's beta-pedro was resumed at half dose. He continued aspirin and Eliquis. Postoperative echocardiogram revealed an
ejection fraction of 55 to 60%, mean gradient of 11, no aortic insufficiency, and no significant changes from prior echo on 04/02/24. During the kiln hand the patient became confused with aphasia and tremors. Stroke alert was called. CT scan
of the head without contrast was negative. CTA of the head and neck also revealed no hemodynamic significant stenosis. Subsequent MRI of the brain revealed scattered subcentimeter foci of restricted diffusion involving the right parietal lobe,
bilateral occipital lobes, bilateral frontal lobes, left basal ganglia, and left cerebellar hemisphere compatible with small acute infarcts.
In discussion with the patient as well as the patient's he was noted to have chronic hyponatremia. Patient's states that he becomes severely symptomatic when he does not maintain his salt intake. He takes 2 g twice daily of salt tablets
as well as maintains a high diet of sodium intake daily at home. Patient's sodium was between 126 and 130. Patient states he becomes symptomatic when he falls below 130. He was placed on a fluid restriction and changed to a regular diet.
On postoperative day #2 the patient was back to his usual self. He was oriented x 3. Speech was back to baseline. And he had no motor deficits from prior small subacute infarcts, serum sodium was 129. Patient's Toprol-XL was increased back to
his home dose. Case was discussed with attending physician, and the patient was medically cleared to be discharged to home on postoperative day 2 with a rhythm star monitor in place.
Home medication changes:
Patient instructed to resume all preoperative home medications.
Take acetaminophen 650 mg p.o. every 4 hours as needed for fever or mild to moderate pain control
Discharge Plan
-
Patient Disposition: Home (Routine Discharge)
Discharge Diagnosis/Procedures: TF TAVR
Condition: Fair
Diet: Low Fat, Low Cholesterol and 2 Gram Sodium
Activity: As tolerated
Driving Restrictions: No driving for 1 week
Bathing Restrictions: OK to Shower
Others Tests: Your 30 day echocardiogram is scheduled for: 05/03 @ 12:40pm
Other Services: Cardiac Rehab
Specialty Instructions: Weigh Daily- Call MD for wt gain/loss 3 lbs overnight/5 lbs in 1 week
Stand Alone Forms: DC Inst - TransFemoral (TAVR)
Referrals:
CT Transitional Care Nurse [Outside] (The Cardiothoracic Transitional Care Nurse will call you to set up a visit in 1-2 days.)
Clarisa Ramos TRANSMISSION REBUILDER [Family Provider] -
Indra Webb MD [Active] - 05/05/24 3:20 pm
Additional Discharge Medication Instructions: Please pay attention to the following medication changes:
Take Acetaminophen 650 mg Q4H PRN-mild/moderate pain, fever
Discharge with Rhythm Star Monitor
Prescriptions:
New
acetaminophen 325 mg Tablet
650 mg PO Q4HPRN PRN (Reason: ZAVALA, mild pain, or fever >101F) Qty: 0 0RF
metoprolol succinate 100 mg Tablet Extended Release 24 Hr
100 mg PO DAILY Qty: 0 0RF
tamsulosin 0.4 mg Capsule
0.4 mg PO DAILY Qty: 30 1RF
aspirin 81 mg Tablet,Delayed Release (Dr/Ec)
81 mg PO DAILY Qty: 0 0RF
Continued
Eliquis 5 mg Tablet
5 mg PO BID
sodium chloride 1,000 mg Tablet,Soluble
2,000 mg PO BID
atorvastatin 40 mg Tablet
40 mg PO DAILY Qty: 0 0RF
calcium carbonate-vitamin D3 500 mg-3.125 mcg (125 unit) Tablet
1 tab PO DAILY Qty: 0 0RF
Discontinued
metoprolol succinate 100 mg Tablet Extended Release 24 Hr
100 mg PO DAILY
aspirin 81 mg Capsule
81 mg PO DAILY
Discharge Orders:
Discharge Patient (As Directed); Ordered 04/09/24
Ordered By: Diann Mortensen
Care Plan Goals
Care Plan Goals:
Problem: Readiness for enhanced knowledge related to diagnosis and treatment plan
Goal: Understand your diagnosis and treatment plan needs, including medications if applicable.
Instructions: Know your diagnosis, underlying causes and treatment plan options, including medications if applicable. Consult with your health care team to learn about your diagnosis and treatment plan, including medications if applicable.
Discharge Date and Time
Print Language: ANDORRAN

Documented by User: JAX Escalante 04/09/24 10:10
Discharge Summary
Discharge Data
Date of Admission: 04/02/24
Date of Discharge: 04/09/24
Hospital Course
Primary care physician:
JAX Zacarias
Outpatient bank clerk:
Dr. Indra Webb MD.
Inpatient consultants:
[facility]
Procedures:
1. Right transfemoral transcatheter aortic valve replacement with placement of number 29 mm Sims CHRIS [address] Orville Giron MD and Dr. Ritesh Deleon MD on 04/02/24
Primary Diagnosis:
1. Severe symptomatic aortic valve stenosis
2. Moderate left carotid stenosis
3. Paroxysmal atrial fibrillation on chronic anticoagulation with Eliquis
4. Hypertension
5. Hyperlipidemia
6. Venous insufficiency status post stripping and ligation of left lower extremity
7. History of hyponatremia
8. Pleural effusions
Secondary Diagnoses:
1. Severe symptomatic aortic valve stenosis
2. Moderate left carotid stenosis
3. Paroxysmal atrial fibrillation on chronic anticoagulation with Eliquis
4. Hypertension
5. Hyperlipidemia
6. Venous insufficiency status post stripping and ligation of left lower extremity
7. History of hyponatremia
8. Pleural effusions
9. acute post-op embolic multi-lobeCVA
10. Acute postop delirium
11. Acute postop urinary retention
HPI:
Patient is an 84-year-old male with severe symptomatic aortic valve stenosis. He was seen as an outpatient by the transcatheter aortic valve replacement team and deemed an appropriate candidate to undergo transcatheter aortic valve replacement. He
was admitted electively from home on 04/02/2024 for the procedure described above.
Hospital course:
Patient's postoperative hospital course was notable for CVA reflecting scattered small acute infarcts consistent with embolic pattern as well as hyponatremia with confusion and aphasia.
Patient underwent the procedure described above. Procedure was performed using conscious sedation. Patient tolerated the procedure well. He was transported from the cardiac catheterization lab and recovered in Standards Engineer holding. He was on a brief
course of Levophed which was titrated off. Postprocedure EKG revealed sinus rhythm (61 bpm), first-degree AV block and new left bundle branch block. Toprol XL was placed on hold. Patient was transferred to IVU.
On postoperative day #1 morning EKG revealed sinus rhythm (83 bpm) with nonspecific intraventricular conduction block. Patient's beta-pedro was resumed at half dose. He continued aspirin and Eliquis. Postoperative echocardiogram revealed an
ejection fraction of 55 to 60%, mean gradient of 11, no aortic insufficiency, and no significant changes from prior echo on 04/02/24. During the kiln hand the patient became confused with aphasia and tremors. Stroke alert was called. Neurology
was consulted and imaging ordered. CT scan of the head without contrast was negative. CTA of the head and neck also revealed no hemodynamic significant stenosis. Subsequent MRI of the brain revealed scattered subcentimeter foci of restricted
diffusion involving the right parietal lobe, bilateral occipital lobes, bilateral frontal lobes, left basal ganglia, and left cerebellar hemisphere compatible with small acute infarcts.
In discussion with the patient as well as the patient's he was noted to have chronic hyponatremia. Patient's states that he becomes severely symptomatic when he does not maintain his salt intake. He takes 2 g twice daily of salt tablets
as well as maintains a high diet of sodium intake daily at home. Patient's sodium was between 126 and 130. Patient states he becomes symptomatic when he falls below 130. He was placed on a fluid restriction and changed to a regular diet.
On postoperative day #2 the patient was back to his usual self. He was oriented x 3. Speech was back to baseline. And he had no motor deficits from prior small subacute infarcts, serum sodium was 129. Patient's Toprol-XL was increased back to
his home dose. Rhythm star monitor was ordered. Patient was kept for observation due to low sodium.
On postoperative day #3, sodium increased to 131. Patient with worsening confusion and agitation. Psychiatry consulted and agreed to implement MSAS protocol
Postoperative day #4, patient developed acute urinary retention requiring Anaya reinsertion. Flomax was added. Mental status gradually improving.
Postoperative day #5, mental status improved, and BP stable. Patient was mildly orthostatic working with PT. Patient kept for observation.
Postoperative day #6, 500 cc of fluid given for a positive tilt test. Patient ambulated later in today with physical therapy without incident. Physical therapy and Occupational Therapy feel the patient is safe for discharge to home with walker.
Anaya removed. Patient voided without issue
Postoperative day #7, mental status at baseline and patient deemed stable for discharge home with a Rhythm Star monitor
Home medication changes:
Take acetaminophen 650 mg p.o. every 4 hours as needed for fever or mild to moderate pain control
Flomax 0.4mg daily
Discharge Plan
-
Patient Disposition: Home (Routine Discharge)
Discharge Diagnosis/Procedures: TF TAVR
Condition: Fair
Diet: Low Fat, Low Cholesterol and 2 Gram Sodium
Activity: As tolerated
Driving Restrictions: No driving for 1 week
Bathing Restrictions: OK to Shower
Others Tests: Your 30 day echocardiogram is scheduled for: 05/03 @ 12:40pm
Other Services: Cardiac Rehab
Specialty Instructions: Weigh Daily- Call MD for wt gain/loss 3 lbs overnight/5 lbs in 1 week
Stand Alone Forms: DC Inst - TransFemoral (TAVR)
Referrals:
CT Transitional Care Nurse [Outside] (The Cardiothoracic Transitional Care Nurse will call you to set up a visit in 1-2 days.)
Clarisa Ramos NP [Family Provider] -
Indra Webb MD [Active] - 05/05/24 3:20 pm
Additional Discharge Medication Instructions: Please pay attention to the following medication changes:
Take Acetaminophen 650 mg Q4H PRN-mild/moderate pain, fever
Discharge with Rhythm Star Monitor
Prescriptions:
New
acetaminophen 325 mg Tablet
650 mg PO Q4HPRN PRN (Reason: ZAVALA, mild pain, or fever >101F) Qty: 0 0RF
metoprolol succinate 100 mg Tablet Extended Release 24 Hr
100 mg PO DAILY Qty: 0 0RF
tamsulosin 0.4 mg Capsule
0.4 mg PO DAILY Qty: 30 1RF
aspirin 81 mg Tablet,Delayed Release (Dr/Ec)
81 mg PO DAILY Qty: 0 0RF
Continued
Eliquis 5 mg Tablet
5 mg PO BID
sodium chloride 1,000 mg Tablet,Soluble
2,000 mg PO BID
atorvastatin 40 mg Tablet
40 mg PO DAILY Qty: 0 0RF
calcium carbonate-vitamin D3 500 mg-3.125 mcg (125 unit) Tablet
1 tab PO DAILY Qty: 0 0RF
Discontinued
metoprolol succinate 100 mg Tablet Extended Release 24 Hr
100 mg PO DAILY
aspirin 81 mg Capsule
81 mg PO DAILY
Discharge Orders:
Discharge Patient (As Directed); Ordered 04/09/24
Ordered By: Diann Mortensen
Care Plan Goals
Care Plan Goals:
Problem: Readiness for enhanced knowledge related to diagnosis and treatment plan
Goal: Understand your diagnosis and treatment plan needs, including medications if applicable.
Instructions: Know your diagnosis, underlying causes and treatment plan options, including medications if applicable. Consult with your health care team to learn about your diagnosis and treatment plan, including medications if applicable.
Discharge Date and Time
Print Language: ANDORRAN
--- NOTE | 2024-04-04 10:09 | W.PN.CD ---
Today's Communication / Plan
-
-Stable from cardiac standpoint.
-Likely discharge in a.m.
Impression / Plan
-
Severe symptomatic
- s/p R TF TAVR w/ placement of 29mm CHRIS 3 on 04/02/24
- Groins are normal without any vascular compromise and no hematoma.
- Pre-op Cath - Single-vessel CAD as described-there is 50% proximal LAD stenosis and 70% stenosis immediately distal to the takeoff of the large second diagonal branch, AV MG 52mmHg.
- Pre-op ECHO - 01/27/2024 is notable for an EF 55-60%, AV P/M 70/45, WARREN 0.9, pk mihai 4.19, trivial AI, mild to moderate MAC, trace MR, trivial TR, RVSP 26
- Post OP ECHO - today
- Post op transient 1st degree AV block and LBBB - both resolved. normal conduction noted this AM.
- Metoprolol started on 04/03/2024. Will change to 50mg twice daily. - home dose 100 mg QD.
- Acute on Chronic combined systolic/diastolic CHF
- Chronic with elevated LVEDP 26
- ECHO stableon 04/03/[address]
Altered mental status
-Acute delirium�resolved now
-Status post CT scan showing nonspecific changes likely secondary to postop condition
-Mental status is much improved today.
-Patient's family does not feel comfortable taking him home today
-Discharge in a.m.
- Paroxysmal AF
- On Eliquis
- in sinus rhythm
- Back on Eliquis
- Left carotid stenosis
- PAF on Eliquis
- HTN/HLD
- Venous insufficiency- s/p stripping and ligation LLE
- Hyponatremia
- Pleural effusion
- Hyponatremia
- Acute transient postop 1st degree AVB and LBBB
Physical Exam
Vital Signs/Labs
Vital Signs
Temp Pulse Resp BP Pulse Ox
98.5 F 83 18 148/76 95
04/04/24 08:13 04/04/24 08:04 04/04/24 08:13 04/04/24 08:04 04/04/24 08:13
04/03/24 04/04/24 04/05/24
06:59 06:59 06:59
Actual Weight 75 kg 75.2 kg
04/03/24 10:55
04/04/24 02:16
PT 15.6 Sec (11.4-14.6) H 03/24/24 12:41
INR 1.19 03/24/24 12:41
APTT 38.3 Sec (23.4-35.0) H 03/24/24 12:41
03/24/24
12:41
[id number] Pept 2630
Physical Exam
Constitutional: No acute distress and Comfortable
EENT: Anicteric and Moist mucous membranes
Cardiovascular: Rhythm & rate is regular and Pedal edema is absent
Respiratory: Respiratory effort normal and Lungs clear to auscul.
GI: Soft, Distention absent and Non tender
Neuro/Psych: Alert, Oriented and AO x 3
Data Reviewed
-
Date of Service: April 04, 2024
Medical Decision Making: Reviewed Test Results, Test Interpretation and Review of Case with other Provider
EKG: Tracing Personally Visualized and interpreted
Echo: Report Reviewed by me
Labs: Labs Reviewed by me
Old Records: Reviewed
--- NOTE | 2024-04-04 15:13 | PTCARENOTE ---
Some bleeding noted from pt's penis after he voids, no external wound noted, pt denies any discomfort, Gi Priya PA aware.
--- NOTE | 2024-04-04 19:44 | PTCARENOTE ---
Pt oriented X 3 with clear speech all day. Neuro assessment back at baseline .Pt walking in halls with RN with slightly unsteady gait. Sodium 129 this morning. Pt more confused toward evening,sodium dose given early @18:00. Telemetry showed sinus
rhythm with first degree AV block. Will watch pt closely, pt on fall precautions.
--- NOTE | 2024-04-04 20:49 | PTCARENOTE ---
Pt rec'd at change of shift conversing in recliner. Shortly after changing shift pts could be heard shouting at to wait for help/ Pt found standing attempting to get to bathroom quickly secondary to loose diarrhea stool coming out
without pt being able to hold it. Back to bed at present. cooperative spouse remains at bedside. Pt appears little off but answers questions correctly.
--- NOTE | 2024-04-04 23:42 | PTCARENOTE ---
Pt resting in bed with bed alarm activated. No further loose stools noted. spouse remains at bedside
[2024-04-05] VITALS (9 sets, daily range): BP systolic 120–166; BP diastolic 59–82; BMI 24.4
[2024-04-05 05:12] LABS: Blood Urea Nitrogen 14 mg/dl (9-20); Calcium 8.5 mg/dl (8.4-10.2); Carbon Dioxide 23 mmol/L (22-30); Chloride 101 mmol/L (98-107); Estimated Creatinine Clearance 92 ml/min; Glucose 108 mg/dl (70-99); Potassium 4.1 mmol/L (3.5-5.1); Sodium 131 mmol/L (135-145); eGFR > 60.00
--- NOTE | 2024-04-05 06:06 | W.PN.CT ---
Today's Communication / Plan
-
-pod #3
-no issues overnight
-some residual intermittent confusion, but able to answer correctly year, place and procedure with some prompting
-nsr 60s-70s overnight. No juliette or pauses
-Toprol is increased today to home dose of 100 mg daily
-chronic hyponatremia - Na 131 today, same as preop (126-130 postop)
-current meds (ASA, Eliquis, Lipitor, Toprol)
-Rhythm Star monitor post discharge
-possible d/c today
Assessment / Plan
-
- Severe symptomatic - s/p R TF TAVR w/ placement of 29mm CHRIS 3 on 04/02/24, pod #3
- Post TTE: trace PVL, mean gradient 3mmHg
- Acute on Chronic combined systolic/diastolic CHF w/ elevated LVEDP 26
- Left carotid stenosis
- PAF on Eliquis
- HTN/HLD
- Venous insufficiency- s/p stripping and ligation LLE
- Hyponatremia
- Pleural effusion
- Chronic hyponatremia- takes salt tabs bid
- B/l carotid dz (67% prox GAY and 63% prox LICA)
- Hx of confusion d/t hyponatremia in the past
- Acute transient postop 1st degree AVB and LBBB
- Acute postop onset confusion, aphasia, and tremulousness on 04/03. Brain MRI with scattered subcentimeter foci of restricted diffusion involving the right parietal lobe, bilateral occipital lobes, bilateral frontal lobes, left basal ganglia, and
left cerebellar hemisphere compatible with small acute infarcts, most suggestive of embolic phenomenon.
Discussed patient care with: Nursing and Care Team
Subjective
Procedure
- s/p R TF TAVR w/ placement of 29mm CHRIS 3 on 04/02/24
-
Date of Service: April 05, 2024
Objective Data
-
Lab Results
04/03/24 10:55
04/05/24 04:23
PT 15.6 Sec (11.4-14.6) H 03/24/24 12:41
INR 1.19 03/24/24 12:41
APTT 38.3 Sec (23.4-35.0) H 03/24/24 12:41
Vital Signs
Vital Signs
Temp Pulse Resp BP Pulse Ox
98.4 F 81 20 133/75 95
04/05/24 04:21 04/04/24 23:30 04/05/24 04:21 04/04/24 22:18 04/05/24 04:21
CT Intake/Output/Weight
04/04/24 04/04/24 04/05/24
06:59 18:59 06:59
Intake Total 50 / 170 180 / 180
Output Total 350 / 750
Balance -300 / -580 180 / 180
SaO2: 95
Physical Exam
-
General: Awake and AOx3 (some confusion, but answers correctly when prompted (name, month, year, procedure))
Cardiovascular: Regular rate & rhythm, Murmur (1/6 systolic @ lsb) and No Rub
Respiratory: Clear
Incision: Other (groins are cdi, soft, nontender, no hematoma b/l)
Extremities: No Edema
Abdomen: soft, nontender, nondistended, + bowel sounds
Data Reviewed
-
Lab Results: Results Reviewed
Medications: Active Meds Reviewed
Chest X-Ray: Report Reviewed and Image Reviewed
ECG: Report Reviewed and Image Reviewed
[2024-04-05] MEDS: LIPITOR 40 MG PO (08:44)
[2024-04-05] MEDS: SODIUM CHLORIDE 2 GRAM PO ×2 (08:44→22:47)
[2024-04-05] MEDS: TOPROL XL 100 MG PO (08:44)
[2024-04-05] MEDS: OSCAL 500 + D 500 MG PO (08:44)
[2024-04-05] MEDS: ASPIR LOW (ENTERIC COATED) 81 MG PO (08:45)
[2024-04-05] MEDS: ELIQUIS 5 MG PO ×2 (08:45→22:47)
[2024-04-05] MEDS: THIAMINE INJECTION 100 MG IV (08:55)
--- NOTE | 2024-04-05 10:34 | PTCARENOTE ---
Assumed care. Patient disoriented to place, wants to get dressed and go home to [facility]. Speech clear, following commands, strengths equal. More confusion since about 4 am, removing covers, folding blankets. Upper extremity tremors. SR with 1st
degree HB BBB. Assisted to bed now, lights dimmed call hernandez in reach
[2024-04-05] MEDS: ATIVAN 1 MG IV ×2 (12:35→13:57)
--- NOTE | 2024-04-05 12:39 | PTCARENOTE ---
Patient confused to place, agitated, wants to walk home, upper extremity tremors. attentive at bedside, hallucinating in room. 1 mg IV Ativan given
--- NOTE | 2024-04-05 13:06 | W.PN.UPDATE ---
Update Note
Progress Note Update
Patient mildly confused this morning however oriented to self, year, president. Disoriented to place and time. Progressively agitated as day were on becoming combative with nursing staff. Soft limb restraints applied to wrist. Consult to psych
placed and Ativan ordered for agitation protocol. Dr. Giron notified of behavior change. He spoke with to allay fears. Truncal and extremity raised macular rash noted, seems nonpruritic. Zyrtec 10 mg ordered. Quite an environment and
allow patient to sleep.
--- NOTE | 2024-04-05 13:14 | PTCARENOTE ---
Patient aggressive with staff, wanting to go home, attempts out of bed, uncooperative. Attempted to re-orient to place and situation. Dr. Giron at bedside. B/L wrist restraints applied, 4 side rails, and 1:1 sitter at bedside
--- NOTE | 2024-04-05 13:51 | CM ---
Chart reviewed. Patient's at bedside. Patient confused and disoriented to time and place. Plan is for the patient to return home with CT Transitional RN when medically stable. CM to follow
[2024-04-05] MEDS: NSS (PRESERVATIVE FREE) 0.5 ML IV (13:57)
[2024-04-05] MEDS: ZYRTEC 10 MG PO (13:57)
--- NOTE | 2024-04-05 14:08 | PTCARENOTE ---
Patient remains agitated, hallucinating. MSAS 9, IV Ativan given. Rash in groins and chest present. PA notified, Zyrtec given. He is flushed probably from restlessness, sitter at bedside.
--- NOTE | 2024-04-05 15:03 | PTCARENOTE ---
Patient asleep in bed, lights dimmed. Observation continues
--- NOTE | 2024-04-05 16:17 | CON.MD ---
Consultation - Medical
-
patient seen chart reviewed. spoke with nursing and with one to one. patient is an 84 year old male who underwent tavr procedure for aortic stenosis on 04.02. he was to be discharged but it was noted that he was confused and he remained in hospital.
at one point a stroke alert called. mri showed acute infarcts likely embolic and mild to moderate atrophy . mra showed stenosis of the proximal internal carotid arteries. during the night the patient was agitated and today has recevied two doses
of ativan. he required soft restraints. it is noted by nursing that d admitted he consumes alcohol although could not quantitate but it appears to be a significant amount. msas has been ordered for him . the patient is currently sleeping. i could
not rouse him to talk w me. he was described as somewhat better this am. oriented variously to time place president and year. i did call his to talk with her. left message. it is unclear whether patient has a psychiatric history. d told
nursing he has gotten like this in the past when serum sodium decreased. currently it is 131. other labs , cbc , ua okay qtc 477 currently earlier 501 according to nursing family reports patient is very with it cognitively in general
past psych hx no known
medical hx see above hyponatremia venous insuff afib htn hld
substance abuse likely drinks etoh regularly amount not known
social resides w has daughter
mse unable to assess as patient sleeping deeply having received ativan twice today
dx tme secondary to underlying medical including possible acute stroke r/o etoh wd
recommendations follow msas protocol re etoh wd. added another ativan for agitation anxiety. for now would not use atypicals given recent embolic phenomenon. in elderly patients w dementia (this patient reportedly does not have
dementia...but....) there can be inc risk of such phenomena. could use small doses of haldol for severe agitation . have ordered po but if need iv recheck qtc which was high early on. will check back tomorrow
--- NOTE | 2024-04-05 18:00 | PTCARENOTE ---
Patient awakens to names, eyes open, sleepy. Alert to name, and year, speech clear. NSR 1st degree HB. Incontinent of urine, partial bed bath completed. Rash to inner thighs and chest. Calmoseptine applied. Wrist restraints in place, not
cooperative with repositioning, positioned on his left side
--- NOTE | 2024-04-05 22:00 | PTCARENOTE ---
Pt received at change of shift. SR on tele with BBB and first degree AVB, HR 60s-70s. Pt lethargic and arouses to voice, NIH assessment completed as documented, HAMLET Massey notified of score of 2 since it is different from previously
documented assessment. Pt confused to place, bed alarm activated and restraints in place for pt safety. Handoff report given to WOOD SKI MAKER to sit with pt as 1:1 for rest of shift.
[2024-04-06] VITALS (14 sets, daily range): BP systolic 112–160; BP diastolic 58–99; PULSE 69; O2SAT 97; BMI 24.8
--- NOTE | 2024-04-06 | PTCARENOTE ---
CTPA Ed at the bedside to assess patient. Pt disoriented to place. Pt oriented to self and time. Following commands appropriately. Labs and EKG ordered for the AM.
--- NOTE | 2024-04-06 03:00 | CM ---
Chart reviewed. Patient less confused today. Patient with an episode of unresponsiveness, EEG done negative for seizure activity. PT evaluation recommending rehab. Referral sent to [facility]. Physiatry consult ordered. Family agrees. Plan is for
patient to go to Acute vs SNF. CM to follow
--- NOTE | 2024-04-06 03:40 | PTCARENOTE ---
Resumed care of pt at 0130. Pt resting in bed, AAOx2, calm and cooperative. Pt offers no complaints at this time. Bed alarm activated for pt safety. Call hernandez within reach.
[2024-04-06 03:46] LABS: Hematocrit 34.8 % (39.0-52.0); Hemoglobin 12.1 g/dL (13.0-18.0); Mean Corp Hgb Conc. 34.8 g/dL (33.0-37.0); Mean Corpuscular Hgb 32.8 pg (27.0-31.0); Mean Corpuscular Volume 94.3 fL (80.0-94.0); Platelet Count 122 10^3/uL (130-400); Red Blood Cell Count 3.69 10^6/uL (4.70-6.10); Red Cell Dist. Width 12.2 % (11.5-14.5); White Blood Cell Count 5.5 10^3/uL (4.8-10.8)
[2024-04-06 04:08] LABS: Blood Urea Nitrogen 11 mg/dl (9-20); Calcium 8.5 mg/dl (8.4-10.2); Carbon Dioxide 23 mmol/L (22-30); Chloride 102 mmol/L (98-107); Estimated Creatinine Clearance 92 ml/min; GGTP 28 U/L (15-73); Glucose 92 mg/dl (70-99); Magnesium 1.8 mg/dl (1.6-2.3); Sodium 132 mmol/L (135-145); eGFR > 60.00
--- NOTE | 2024-04-06 04:56 | W.PN.CT ---
Today's Communication / Plan
-
Plan:
-No major issues overnight
-Pt is alert and oriented x 2, not oriented to place. No aphasia, moving all extremities appropriately with good strength
-Neurology following
-Was on 1:1 observation, doing better and may not need
-Unable to void overnight, scanned for > 470 mL. Difficulty with straight cath, placed 16F weaver catheter. Will start Flomax
-Groins C/D/I without significant hematoma
-Will replet mg of 1.8
-Cont. current meds (ASA, ELiquis, Lipitor, Toprol XL)
-Eventual d/c home with [employer] heart monitor
Assessment / Plan
-
- Severe symptomatic - s/p R TF TAVR w/ placement of 29mm CHRIS 3 on 04/02/24, pod #4
- Post TTE: trace PVL, mean gradient 3mmHg
- Acute on Chronic combined systolic/diastolic CHF w/ elevated LVEDP 26
- Left carotid stenosis
- PAF on Eliquis
- HTN/HLD
- Venous insufficiency- s/p stripping and ligation LLE
- Hyponatremia
- Pleural effusion
- Chronic hyponatremia- takes salt tabs bid
- B/l carotid dz (67% prox GAY and 63% prox LICA)
- Hx of confusion d/t hyponatremia in the past
- Probable BPH
- Acute transient postop 1st degree AVB and LBBB
- Acute postop onset confusion, aphasia, and tremulousness on 04/03. Brain MRI with scattered subcentimeter foci of restricted diffusion involving the right parietal lobe, bilateral occipital lobes, bilateral frontal lobes, left basal ganglia, and
left cerebellar hemisphere compatible with small acute infarcts, most suggestive of embolic phenomenon.
-Acute postop urinary retention, weaver reinserted 04/06/24
Discussed patient care with: Cardiology, Nursing, Respiratory Therapy, Pharmacy and Care Team
Subjective
Procedure
- s/p R TF TAVR w/ placement of 29mm CHRIS 3 on 04/02/24
-
Date of Service: April 06, 2024
Pt unable to void overnight, scanned for > 470 mL urine, straight cath difficulty, 16F weaver placed. Alert and oriented x 2, not oriented to place
Objective Data
-
Lab Results
04/06/24 03:02
04/06/24 03:02
PT 15.6 Sec (11.4-14.6) H 03/24/24 12:41
INR 1.19 03/24/24 12:41
APTT 38.3 Sec (23.4-35.0) H 03/24/24 12:41
Vital Signs
Vital Signs
Temp Pulse Resp BP Pulse Ox
98.2 F 68 17 135/61 95
04/06/24 03:06 04/06/24 03:00 04/06/24 03:06 04/06/24 02:00 04/06/24 03:06
CT Intake/Output/Weight
04/05/24 04/05/24 04/06/24
06:59 18:59 06:59
Intake Total 480 / 480
Balance 480 / 480
SaO2: 95 (RA)
Physical Exam
-
General: Awake, Oriented and AOx3
Cardiovascular: Regular rate & rhythm, No Murmurs, No Rub and No Gallop
Respiratory: Decreased Breath Sounds (at bases, otherwise clear)
Sternum: Stable
Incision: Clean, Dry, Intact and Dressing Intact
Extremities: No Edema
Data Reviewed
-
Lab Results: Results Reviewed
Medications: Active Meds Reviewed
Chest X-Ray: Report Reviewed and Image Reviewed
ECG: Report Reviewed and Image Reviewed
[2024-04-06] MEDS: MAGNESIUM SULFATE 102 GRAMS IV (06:02)
--- NOTE | 2024-04-06 07:42 | PTCARENOTE ---
Pt noted to not have any urine output throughout night. Bladder scanned pt for >446. CTPA Ed Eveline notified and order for straight cath placed. Straight cath attempt failed due to pts hx of BPH. PA to bedside to place weaver catheter. 16F
Weaver placed draining layo urine. Scant bleeding noted around site.
[2024-04-06] MEDS: FLOMAX 0.4 MG PO (09:21)
[2024-04-06] MEDS: ASPIR LOW (ENTERIC COATED) 81 MG PO (09:21)
[2024-04-06] MEDS: ELIQUIS 5 MG PO ×2 (09:21→20:56)
[2024-04-06] MEDS: FLUSH (NSS) 3 FLUSH IV (09:22)
[2024-04-06] MEDS: OSCAL 500 + D 500 MG PO (09:22)
[2024-04-06] MEDS: TOPROL XL 100 MG PO (09:22)
[2024-04-06] MEDS: THIAMINE INJECTION 100 MG IV (09:22)
[2024-04-06] MEDS: SODIUM CHLORIDE 2 GRAM PO ×2 (09:23→20:56)
[2024-04-06] MEDS: LIPITOR 40 MG PO (09:25)
--- NOTE | 2024-04-06 09:25 | PTCARENOTE ---
The patient is awake but drowsy. He is oriented to self and time. He stated that he was at [facility]. I oriented him to place. He does remember getting upset yesterday. He said he wanted to get his clothes from [employer]. Vital signs are stable. NSR with
a 1st degree AVB is noted on the monitor. BL groin sites are c/d/i with some surrounding bruising. He has no complaints of pain or discomfort. His Anaya is putting out layo urine. Wrist restraint were removed. BL hand tremors were noted. MSAS score
is a 3. NIHSS was scored a 2 for expressive aphasia and disoriented to place.
[2024-04-06 10:00] LABS: Urine Albumin 1+ (Neg - Trace); Urine Bilirubin Negative (Negative); Urine Character Clear (Clear); Urine Color Yellow; Urine Glucose Negative (Negative); Urine Ketone 1+ (Negative); Urine Leukocyte Negative (Negative); Urine Nitrite Negative (Negative); Urine Occult Blood 4+ (Negative); Urine Urobilinogen Negative (Neg - 1+)
[2024-04-06 10:44] LABS: Urine Mucus Many
[2024-04-06 10:45] LABS: Urine Squamous Cell 0-2 /LPF (Few)
[2024-04-06 10:46] LABS: Urine Red Blood Cell 80-90 /HPF (0-2)
[2024-04-06 10:47] LABS: Urine Amorphous Seen; Urine White Cell 0-2 /HPF (0-5)
--- NOTE | 2024-04-06 11:09 | W.PN.UPDATE ---
Addendum entered and electronically signed by Jomar Briceño MD 04/06/24 11:14:
have cut etoh prn to o.5 mg for anxiety. did not amend the msas ativan orders. would counseling services manager patient re prudent use of etoh.
Original Note:
Update Note
Progress Note Update
patient seen chart reviewed. spoke with nursing and PT. the patient is doing much better. he had an uneventful night. when i saw him he was oriented x3 (he did look at the board for the actual date) he knew the eagles had recently won the super
bowl and had some knowledge of the margin of the victory! he was able to give me his exact address including the zip code which was correct! patient is improving and he will likely continue to improve. psych will sign off. will dc haldol. it
does not appear he needs it at the present time.
[2024-04-06 11:35] LABS: Glucose - Point of Care 117 mg/dl (70-99)
--- NOTE | 2024-04-06 11:54 | PTCARENOTE ---
Addendum entered by Sheree Jefferson RN 04/06/24 12:34:
Notified Dr. Huffman
Original Note:
I went in to check the patient's TVAR sites and found the patient in his chair. His head was leaning way back and his eyes were open. He was unresponsive to my commands even after sternal rubbing. The patient was breathing with a positive pulse. A
rapid response was called. We transferred the patient back to the bed. His vital signs were stable. BSG 117. Some egg particles were in his mouth which I removed. He slowly started to respond when the rapid response team arrived.
NIHSS was done. CXR ordered. CT PA aware.
See Rapid Response documentation.
--- NOTE | 2024-04-06 16:11 | EEG.RPT ---
Electroencephalogram Report
Recording
Date of EE04/06/24
Length of EEG recordin mins
Done with Video Recording: Yes
Patient Status: Inpatient
Recording Conditions: Awake and Drowsy
Hyperventilation Performed: No
Photic Stimulation Performed: Yes
Report
Background: continuous generalized slowing, polymorphic theta activity. symmetric, +spontaneous variability, +reactivity
Sleep: none
focal/rhythmic/epileptiform: none
Seizures: none
Photic stim: no background change
Impression: continuous generalized slowing
Clinical Correlation: mild generalized cerebral dysfunction
--- NOTE | 2024-04-06 16:42 | PTCARENOTE ---
Both the Heart Failure booklet and the Afib booklet was given to the patient. She can read [place].
--- NOTE | 2024-04-06 17:08 | W.PN.CD ---
Today's Communication / Plan
-
stable for discharge from cardiac standpoint
mental status still not back to baseline
Impression / Plan
-
Severe symptomatic
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
- Groins are normal without any vascular compromise and no hematoma.
- Pre-op Cath - Single-vessel CAD as described-there is 50% proximal LAD stenosis and 70% stenosis immediately distal to the takeoff of the large second diagonal branch, AV MG 52mmHg.
- Pre-op ECHO - 01/27/2024 is notable for an EF 55-60%, AV P/M 70/45, WARREN 0.9, pk mihai 4.19, trivial AI, mild to moderate MAC, trace MR, trivial TR, RVSP 26
- Post OP ECHO - 02/01/2024 Normal biventricular size and systolic function without regional wall motion abnormality. Mitral annular calcification with trace mitral regurgitation. Well seated, #29 mm Sims Michael TAVR with mean gradients across
the aortic valve of 11 mmHg. Mild tricuspid regurgitation. Estimated pulmonary artery pressure of 36 mmH.No pericardial or pleural effusions seen.
- Post op transient 1st degree AV block and LBBB - both resolved. normal conduction noted this AM.
- cont. metoprolol 100 PO qD
- Acute on Chronic combined systolic/diastolic CHF
- Chronic with elevated LVEDP 26
- ECHO stable on 04/03/[address]
Altered mental status
-main issues keeping patient in hospital
-Acute delirium, had improved but worse today
-EEG recommended per neuro, demonstrates generalized slowing, no seizures
-Status post CT scan showing nonspecific changes likely secondary to postop condition
-MRI with diffuse scattered small acute infarcts as described above with a distribution that is most suggestive of embolic phenomenon; may or may not be related to his mental status change as such MRI findings are common post TAVR
- Paroxysmal AF
- On Eliquis
- in sinus rhythm
- Left carotid stenosis
- PAF on Eliquis
- HTN/HLD
- Venous insufficiency- s/p stripping and ligation LLE
- Hyponatremia
- Pleural effusion
- Hyponatremia
- Acute transient postop 1st degree AVB and LBBB
Physical Exam
Vital Signs/Labs
Vital Signs
Temp Pulse Resp BP Pulse Ox
36.8 C 78 18 124/84 98
04/06/24 16:27 04/06/24 16:27 04/06/24 16:27 04/06/24 16:27 04/06/24 16:27
04/05/24 04/06/24 04/07/24
06:59 06:59 06:59
Actual Weight 72.9 kg 73.9 kg
04/06/24 03:02
04/06/24 03:02
PT 15.6 Sec (11.4-14.6) H 03/24/24 12:41
INR 1.19 03/24/24 12:41
APTT 38.3 Sec (23.4-35.0) H 03/24/24 12:41
Magnesium 1.8 mg/dl (1.6-2.3) 04/06/24 03:02
03/24/24
12:41
Bpc-E-Iyrycurbscf Pept 2630
Physical Exam
Constitutional: No acute distress
Cardiovascular: Rhythm & rate is regular
Respiratory: Respiratory effort normal
Neuro/Psych: Other (somnolent, EEG hooked up)
Data Reviewed
-
Date of Service: April 06, 2024
Medical Decision Making: Reviewed Test Results
Echo: Tracing Personally Visualized and interpreted
Labs: Labs Reviewed by me
--- NOTE | 2024-04-06 18:38 | PTCARENOTE ---
No more unresponsive episodes the remainder of my shift. He is still forgetful of where he is at. The patient has been awake. He ate 90% of his lunch. He has been pleasant and cooperative all shift. There has been no need for restraints. His
tremors have subsided some but still visible.
--- NOTE | 2024-04-06 19:09 | W.PN.NEURO.1 ---
Today's Communication / Plan
-
possible seizure, normal EEG, no rx
Neuro Assessment/Plan
Assessment
MRI brain imgs rev'd, ~10 tiny scattered emboli in multiple vascular distributions
CTA head/neck showing prox Right ICA 67% stenosis. left carotid bulb 63% stenosis.
routine EEG background slow
Patient with paroxysmal event episode of LOC, followed by difficulty to arouse. certainly seizure is a possibility. with unremarkable EEG i would not treat
These paroxysmal events either recur and eventually reveal what they are; or are self limiting and don't happen again.
moderate bilateral carotid stenosis, asymptomatic. no intervention indicated. consider yearly follow up with carotid ultrasound
Plan
would not start any seizure meds
Subjective/Objective
Subjective Data
Date of Service: April 06, 2024
Called to re evaluate patient; Found by RN in chair, unresponsive to sternal rub. ONCOLOGY REP called and patient eventually returned to baseline.
Briefly, he was admitted 04/02 after TAVR, and on 04/03 developed garbled speech which has since resolved. MRI found to have ~10 emboli.
at time of my evaluation patient feels that he is mentating at baseline.
Objective Data
Vital Signs
Temp Pulse Resp BP Pulse Ox
36.8 C 78 18 124/84 98
04/06/24 16:27 04/06/24 16:27 04/06/24 16:27 04/06/24 16:27 04/06/24 16:27
Lab Results
04/06/24 03:02
04/06/24 03:02
PT 15.6 Sec (11.4-14.6) H 03/24/24 12:41
INR 1.19 03/24/24 12:41
APTT 38.3 Sec (23.4-35.0) H 03/24/24 12:41
Sodium 132 mmol/L (135-145) L 04/06/24 03:02
Potassium 4.0 mmol/L (3.5-5.1) 04/06/24 03:02
BUN 11 mg/dl (9-20) 04/06/24 03:02
Glucose 92 mg/dl (70-99) 04/06/24 03:02
Calcium 8.5 mg/dl (8.4-10.2) 04/06/24 03:02
Uvm-R-Thnpswdyaml Pept 2630 pg/ml 03/24/24 12:41
Patient Allergies
No Known Allergies Allergy (Unverified 03/22/24 11:38)
Physical Exam
-
sitting up in chair
awake/alert
Moving all extremities
--- NOTE | 2024-04-06 21:45 | PTCARENOTE ---
Assumed care of pt at change of shift. NSR on tele with first degree AVB and BBB, HR 70s. Pt AAOx3 and following commands. NIH scored 0. Bed alarm activated for pt safety. B/L groin sites c/d/i with come old ecchymosis noted. Anaya catheter in
place for acute urinary retention draining layo colored urine. Can make needs known. Call hernandez within reach.
[2024-04-06] MEDS: TYLENOL 650 MG PO (23:05)
[2024-04-07] VITALS (13 sets, daily range): BP systolic 93–165; BP diastolic 53–86; PULSE 67–73; O2SAT 97; BMI 24.1
[2024-04-07 05:22] LABS: Blood Urea Nitrogen 18 mg/dl (9-20); Calcium 8.5 mg/dl (8.4-10.2); Carbon Dioxide 21 mmol/L (22-30); Chloride 99 mmol/L (98-107); Estimated Creatinine Clearance 92 ml/min; Glucose 110 mg/dl (70-99); Potassium 3.8 mmol/L (3.5-5.1); Sodium 131 mmol/L (135-145); eGFR > 60.00
--- NOTE | 2024-04-07 06:09 | W.PN.CT ---
Today's Communication / Plan
-
-pod #5
-A&O x4, pleasant. Mental status appears back at baseline
-in nsr 60s-70s, 5 beat NSVT overnight. No juliette or pauses
-1st degree AVB and LBBB
-EEG 04/06: mild generalized cerebral dysfunction, no seizures
-Anaya in for urinary retention, started on Flomax
-current meds (ASA, Eliquis, Lipitor, Toprol 100 qd, NaCl 2g bid, Flomax)
-will ask Physiatry to eval
-appreciate everyone's input
Assessment / Plan
-
- Severe symptomatic - s/p R TF TAVR w/ placement of 29mm CHRIS 3 on 04/02/24, pod #5
- Post TTE: trace PVL, mean gradient 3mmHg
- Acute on Chronic combined systolic/diastolic CHF w/ elevated LVEDP 26
- Left carotid stenosis
- PAF on Eliquis
- HTN/HLD
- Venous insufficiency- s/p stripping and ligation LLE
- Pleural effusion
- Chronic hyponatremia- takes salt tabs bid, hx cva-like sxs in the past in setting of hyponatremia
- B/l carotid dz (67% prox GAY and 63% prox LICA)
- Hx of confusion d/t hyponatremia in the past
- Probable BPH
- Acute transient postop 1st degree AVB and LBBB
- Acute postop onset confusion, aphasia, and tremulousness on 04/03/24. Brain MRI with scattered subcentimeter foci of restricted diffusion involving the right parietal lobe, bilateral occipital lobes, bilateral frontal lobes, left basal
ganglia, and left cerebellar hemisphere compatible with small acute infarcts, most suggestive of embolic phenomenon.
- Increased confusion, agitation, requiring restraints, 1:1 on 04/05/24-started on Ativan with MSAS protocol for suspected DT - evaluated by Psychiatry
- EEG 04/06/24 with mild generalized cerebral dysfunction, no seizures
- Acute postop urinary retention, Anaya reinserted 04/06/24
Discussed patient care with: Nursing and Care Team
Subjective
Procedure
- s/p R TF TAVR w/ placement of 29mm CHRIS 3 on 04/02/24
-
Date of Service: April 06, 2024
Objective Data
-
Lab Results
04/06/24 03:02
04/06/24 03:02
PT 15.6 Sec (11.4-14.6) H 03/24/24 12:41
INR 1.19 03/24/24 12:41
APTT 38.3 Sec (23.4-35.0) H 03/24/24 12:41
Vital Signs
Vital Signs
Temp Pulse Resp BP Pulse Ox
99.5 F 73 20 112/59 96
04/06/24 19:20 04/06/24 19:00 04/06/24 19:20 04/06/24 18:40 04/06/24 19:20
CT Intake/Output/Weight
04/06/24 04/06/24 04/07/24
06:59 18:59 06:59
Intake Total 480 / 480
Output Total 875 / 875
Balance -395 / -395
SaO2: 96
Physical Exam
-
General: Awake and AOx3 (mental status is at baseline)
Cardiovascular: Regular rate & rhythm, Murmur (1/6 systolic murmur @ lsb) and No Rub
Respiratory: Clear
Incision: Other (groins are cdi, soft, nontender b/l)
Extremities: No Edema (2+PTs)
Abdomen: soft, nontender, nondistended, + bowel sounds
Data Reviewed
-
Lab Results: Results Reviewed
Medications: Active Meds Reviewed
Chest X-Ray: Report Reviewed and Image Reviewed
ECG: Report Reviewed and Image Reviewed
[2024-04-07] MEDS: TOPROL XL 100 MG PO (07:23)
[2024-04-07] MEDS: LIPITOR 40 MG PO (07:23)
[2024-04-07] MEDS: FLOMAX 0.4 MG PO (07:23)
[2024-04-07] MEDS: OSCAL 500 + D 500 MG PO (07:23)
[2024-04-07] MEDS: ASPIR LOW (ENTERIC COATED) 81 MG PO (07:23)
[2024-04-07] MEDS: ELIQUIS 5 MG PO ×2 (07:23→20:16)
[2024-04-07] MEDS: SODIUM CHLORIDE 2 GRAM PO ×2 (07:23→20:17)
[2024-04-07] MEDS: FLUSH (NSS) 2 FLUSH IV (07:24)
--- NOTE | 2024-04-07 07:43 | PTCARENOTE ---
The patient is much more alert and conversive this morning. He is aaox3, he knows he is in the hospital today. Vital signs are stable. NSR with a 1st degree AVB is noted on the monitor. NIHSS is scored a 0. BL hand tremors are noted. His Anaya is
running clear layo colored urine. His bl groin sites are c/d/i with some ecchymosis noted around the dressings. He has no complaints of pain or discomfort. He called and order his breakfast. His call hernandez is within reach.
--- NOTE | 2024-04-07 08:53 | PTCARENOTE ---
The patient is aaox3, vss, NSR is noted on the monitor. Her lungs are clear BL. She does have frequent nasal secretions that she states is her 'allergies.' She is ambulatory in her room. She has no complaints.
--- NOTE | 2024-04-07 13:52 | PTCARENOTE ---
While working with PT the patient became orthostatic. While lying in bed his BP was 158/75, standing at the bedside he was 96/63, sitting in the chair he was 154/74. The patient denied feeling dizzy or lightheaded while standing. Notified Diann
[employer].
--- NOTE | 2024-04-07 15:41 | CM ---
Chart reviewed. Patient is independent of ADLS, lives with his in a 2STH, full flight of stairs to enter, 0 DME. PT evaluation recommending Acute vs SNF, waiting on PM+R consult. Referral sent to [facility]. I reviewed SNF with family. Patients
would like to talk with her nephew who is a RN in the ER here at to see what he recommends. CM to follow
[2024-04-08] VITALS (10 sets, daily range): BP systolic 111–153; BP diastolic 55–78; PULSE 74–108; O2SAT 99; BMI 24.2
--- NOTE | 2024-04-08 02:03 | W.PN.CT ---
Addendum entered and electronically signed by Orville Giron MD 04/08/24 06:29:
I saw and examined the patient.
The PA's note was reviewed and I agree with the note.
Comment:
Mentation improving
Orthostasis yesterday - ? dehydration - start IVF (NSS) x 500mL @ 120mL/hr
Continue ASA/Eliquis
Continue PT/OT/OOB
Will require rehab on D/C
Original Note:
Today's Communication / Plan
-
-pod #6
-no issues overnight
-mental status improving
-orthostasis while walking with PT yesterday
-Physiatry eval pending
-current meds (ASA, Eliquis, Lipitor, Toprol 100 qd, NaCl 2g bid, Flomax)
-appreciate everyone's input
Assessment / Plan
-
- Severe symptomatic - s/p R TF TAVR w/ placement of 29mm CHRIS 3 on 04/02/24, pod #6
- Post TTE: trace PVL, mean gradient 3mmHg
- Acute on Chronic combined systolic/diastolic CHF w/ elevated LVEDP 26
- Left carotid stenosis
- PAF on Eliquis
- HTN/HLD
- Venous insufficiency- s/p stripping and ligation LLE
- Pleural effusion
- Chronic hyponatremia- takes salt tabs bid, hx cva-like sxs in the past in setting of hyponatremia
- B/l carotid dz (67% prox GAY and 63% prox LICA)
- Hx of confusion d/t hyponatremia in the past
- Probable BPH
- Acute transient postop 1st degree AVB and LBBB
- Acute postop onset confusion, aphasia, and tremulousness on 04/03/24. Brain MRI with scattered subcentimeter foci of restricted diffusion involving the right parietal lobe, bilateral occipital lobes, bilateral frontal lobes, left basal
ganglia, and left cerebellar hemisphere compatible with small acute infarcts, most suggestive of embolic phenomenon.
- Increased confusion, agitation, requiring restraints, 1:1 on 04/05/24-started on Ativan with MSAS protocol for suspected DT - evaluated by Psychiatry
- EEG 04/06/24 with mild generalized cerebral dysfunction, no seizures
- Acute postop urinary retention, Anaya reinserted 04/06/24
Discussed patient care with: Nursing and Care Team
Subjective
Procedure
- s/p R TF TAVR w/ placement of 29mm CHRIS 3 on 04/02/24
-
Date of Service: April 08, 2024
Objective Data
-
PT 15.6 Sec (11.4-14.6) H 03/24/24 12:41
INR 1.19 03/24/24 12:41
APTT 38.3 Sec (23.4-35.0) H 03/24/24 12:41
Vital Signs
Vital Signs
Temp Pulse Resp BP Pulse Ox
98.2 F 70 18 146/86 94
04/07/24 22:54 04/07/24 22:50 04/07/24 22:54 04/07/24 22:50 04/07/24 22:54
CT Intake/Output/Weight
04/07/24 04/07/24 04/08/24
06:59 18:59 06:59
Intake Total 480 / 480
Output Total 200 / 1075 550 / 550
Balance -200 / -595 -70 / -70
SaO2: 94
Physical Exam
-
General: Awake and AOx3 (mental status is at baseline)
Cardiovascular: Regular rate & rhythm, Murmur (1/6 systolic murmur @ lsb) and No Rub
Respiratory: Clear
Incision: Other (groins are cdi, soft, nontender b/l)
Abdomen: soft, nontender, nondistended, + bowel sounds
Extremities: No Edema (2+PTs)
Data Reviewed
-
Lab Results: Results Reviewed
Medications: Active Meds Reviewed
Chest X-Ray: Report Reviewed and Image Reviewed
CT Scan: Report Reviewed
ECG: Report Reviewed and Image Reviewed
[2024-04-08 04:18] LABS: Hematocrit 31.6 % (39.0-52.0); Hemoglobin 11.1 g/dL (13.0-18.0); Mean Corp Hgb Conc. 35.1 g/dL (33.0-37.0); Mean Corpuscular Hgb 32.5 pg (27.0-31.0); Mean Corpuscular Volume 92.4 fL (80.0-94.0); Mean Platelet Volume 10.1 fL (7.4-10.4); Platelet Count 121 10^3/uL (130-400); Red Blood Cell Count 3.42 10^6/uL (4.70-6.10); Red Cell Dist. Width 12.1 % (11.5-14.5); White Blood Cell Count 5.1 10^3/uL (4.8-10.8)
[2024-04-08 04:39] LABS: ALT (SGPT) < 10 U/L (0-50); AST (SGOT) 18 U/L (17-59); Albumin 3.1 g/dl (3.5-5.0); Alkaline Phosphatase 75 U/L (38-126); Blood Urea Nitrogen 17 mg/dl (9-20); Calcium 8.2 mg/dl (8.4-10.2); Carbon Dioxide 22 mmol/L (22-30); Chloride 102 mmol/L (98-107); Estimated Creatinine Clearance 92 ml/min; Glucose 105 mg/dl (70-99); HDL Cholesterol 47 mg/dl; LDL Cholesterol, Calculated 51 mg/dl; Sodium 131 mmol/L (135-145); Total Cholesterol 107 mg/dl (50-199); Total Protein 5.8 g/dl (6.3-8.2); Triglyceride 48 mg/dl (10-149); Very Low Density Lipoprotein 9 mg/dl (0-30); eGFR > 60.00
--- NOTE | 2024-04-08 05:16 | PTCARENOTE ---
Pt without complaints overnight- SR w/ 1st degree on the monitor. NIH-1 for mild expressive aphasia/ word searching. Pt was able to tell me we were in a hospital but did not recall the town. No agitation overnight.
[2024-04-08] MEDS: NSS 500 IV (07:24)
[2024-04-08] MEDS: SODIUM CHLORIDE 2 GRAM PO ×2 (09:03→20:55)
[2024-04-08] MEDS: ELIQUIS 5 MG PO ×2 (09:04→20:55)
[2024-04-08] MEDS: FLOMAX 0.4 MG PO (09:04)
[2024-04-08] MEDS: LIPITOR 40 MG PO (09:04)
[2024-04-08] MEDS: TOPROL XL 100 MG PO (09:04)
[2024-04-08] MEDS: ASPIR LOW (ENTERIC COATED) 81 MG PO (09:05)
[2024-04-08] MEDS: OSCAL 500 + D 500 MG PO (09:05)
--- NOTE | 2024-04-08 12:29 | CM ---
Chart reviewed. Patient is independent of ADLS, lives with his in a 2 S[address], full flight of ADDI, 0 DME. Patient did much better today with PT, ambulated 110 feet x 2 and was able to ambulate 11 steps up on a step stool, 2/2 to IV pole unable
to do stairs. PT recommending Home with PT vs Acute Rehab. I spoke to patient's daughter, Sheree, I reviewed plan of care and she is agreeable. Plan is for the patient to go home with CT Transitional RN.
--- NOTE | 2024-04-08 13:53 | PTCARENOTE ---
Anaya catheter removed per MD order. Pt instructed to notify staff when he urinates so a bladder scan can be obtained. Pt verbalized understanding. Will monitor.
--- NOTE | 2024-04-08 17:26 | W.PN.CD ---
Today's Communication / Plan
-
stable for discharge from cv standpoint
will need rhythm monitor on discharge
Impression / Plan
-
Severe symptomatic
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
- Groins are normal without any vascular compromise and no hematoma.
- Pre-op Cath - Single-vessel CAD as described-there is 50% proximal LAD stenosis and 70% stenosis immediately distal to the takeoff of the large second diagonal branch, AV MG 52mmHg.
- Pre-op ECHO - 01/27/2024 is notable for an EF 55-60%, AV P/M 70/45, WARREN 0.9, pk mihai 4.19, trivial AI, mild to moderate MAC, trace MR, trivial TR, RVSP 26
- Post OP ECHO - 02/01/2024 Normal biventricular size and systolic function without regional wall motion abnormality. Mitral annular calcification with trace mitral regurgitation. Well seated, #29 mm Sims Michael TAVR with mean gradients across
the aortic valve of 11 mmHg. Mild tricuspid regurgitation. Estimated pulmonary artery pressure of 36 mmH.No pericardial or pleural effusions seen.
- Post op transient 1st degree AV block and LBBB - both resolved. normal conduction noted this AM.
- cont. metoprolol 100 PO qD
- Acute on Chronic combined systolic/diastolic CHF
- Chronic with elevated LVEDP 26
- ECHO stable on 04/03/[address]
Altered mental status, resolved
-EEG recommended per neuro, demonstrates generalized slowing, no seizures
-Status post CT scan showing nonspecific changes likely secondary to postop condition
-MRI with diffuse scattered small acute infarcts as described above with a distribution that is most suggestive of embolic phenomenon; may or may not be related to his mental status change as such MRI findings are common post TAVR
- Paroxysmal AF
- On Eliquis
- in sinus rhythm
- Left carotid stenosis
- PAF on Eliquis
- HTN/HLD
- Venous insufficiency- s/p stripping and ligation LLE
- Hyponatremia
- Pleural effusion
- Hyponatremia
- Acute transient postop 1st degree AVB and LBBB
Physical Exam
Vital Signs/Labs
Vital Signs
Temp Pulse Resp BP Pulse Ox
36.6 C 70 20 132/65 100
04/08/24 15:00 04/08/24 16:00 04/08/24 15:00 04/08/24 15:01 04/08/24 15:00
04/07/24 04/08/24 04/09/24
06:59 06:59 06:59
Actual Weight 72 kg 72.1 kg
04/08/24 03:58
04/08/24 03:58
PT 15.6 Sec (11.4-14.6) H 03/24/24 12:41
INR 1.19 03/24/24 12:41
APTT 38.3 Sec (23.4-35.0) H 03/24/24 12:41
Magnesium 1.8 mg/dl (1.6-2.3) 04/06/24 03:02
Triglycerides 48 mg/dl (10-149) 04/08/24 03:58
LDL Cholesterol, Calc 51 mg/dl 04/08/24 03:58
VLDL Cholesterol, Calc 9 mg/dl (0-30) 04/08/24 03:58
HDL Cholesterol 47 mg/dl 04/08/24 03:58
03/24/24
12:41
[id number] Pept 2630
Physical Exam
Constitutional: No acute distress
Cardiovascular: Rhythm & rate is regular
Respiratory: Respiratory effort normal
Neuro/Psych: AO x 3
Data Reviewed
-
Date of Service: April 08, 2024
Medical Decision Making: Reviewed Test Results
Labs: Labs Reviewed by me
--- NOTE | 2024-04-09 | PTCARENOTE ---
Pt remains in NSR with first degree AVB and BBB on tele, HR 70s. AAOx3 but forgetful at times, NIH scored 0, no deficits noted on assessment. Pt ambulating in room with rolling walker, gait steady. Offers no complaints at this time. Call hernandez
within reach.
--- NOTE | 2024-04-09 03:26 | W.PN.CT ---
Today's Communication / Plan
-
-pod #7
-no issues overnight
-mental status stable
-got ivf for possible dehydration/orthostasis om 04/08
-Anaya dcd 04/08. Will need to bladder scan if not voiding adequately
-did well with ambulation with PT, will need walker at d/c
-appreciate everyone's input
-possible d/c soon
Assessment / Plan
-
- Severe symptomatic - s/p R TF TAVR w/ placement of 29mm CHRIS 3 on 04/02/24, pod #7
- Post TTE: trace PVL, mean gradient 3mmHg
- Acute on Chronic combined systolic/diastolic CHF w/ elevated LVEDP 26
- Left carotid stenosis
- PAF on Eliquis
- HTN/HLD
- Venous insufficiency- s/p stripping and ligation LLE
- Pleural effusion
- Chronic hyponatremia- takes salt tabs bid, hx cva-like sxs in the past in setting of hyponatremia
- B/l carotid dz (67% prox GAY and 63% prox LICA)
- Hx of confusion d/t hyponatremia in the past
- Probable BPH
- Acute transient postop 1st degree AVB and LBBB
- Acute postop onset confusion, aphasia, and tremulousness on 04/03/24. Brain MRI with scattered subcentimeter foci of restricted diffusion involving the right parietal lobe, bilateral occipital lobes, bilateral frontal lobes, left basal
ganglia, and left cerebellar hemisphere compatible with small acute infarcts, most suggestive of embolic phenomenon.
- Increased confusion, agitation, requiring restraints, 1:1 on 04/05/24-started on Ativan with MSAS protocol for suspected DT - evaluated by Psychiatry
- EEG 04/06/24 with mild generalized cerebral dysfunction, no seizures
- Acute postop urinary retention, Anaya reinserted 04/06/24
Discussed patient care with: Nursing and Care Team
Subjective
Procedure
- s/p R TF TAVR w/ placement of 29mm CHRIS 3 on 04/02/24
-
Date of Service: April 09, 2024
Objective Data
-
Lab Results
04/08/24 03:58
04/08/24 03:58
PT 15.6 Sec (11.4-14.6) H 03/24/24 12:41
INR 1.19 03/24/24 12:41
APTT 38.3 Sec (23.4-35.0) H 03/24/24 12:41
Vital Signs
Vital Signs
Temp Pulse Resp BP Pulse Ox
97.9 F 69 18 152/71 97
04/08/24 22:59 04/08/24 22:40 04/08/24 22:59 04/08/24 22:40 04/08/24 22:59
CT Intake/Output/Weight
04/08/24 04/08/24 04/09/24
06:59 18:59 06:59
Intake Total 860 / 860
Output Total 250 / 800 650 / 650
Balance -250 / -320 210 / 210
SaO2: 97
Physical Exam
-
General: Awake and AOx3 (mental status is at baseline)
Cardiovascular: Regular rate & rhythm, Murmur (1/6 systolic murmur @ lsb) and No Rub
Respiratory: Clear
Incision: Other (groins are cdi, soft, nontender b/l)
Abdomen: soft, nontender, nondistended, + bowel sounds
Extremities: No Edema (2+PTs)
Data Reviewed
-
Lab Results: Results Reviewed
Medications: Active Meds Reviewed
Chest X-Ray: Report Reviewed and Image Reviewed
CT Scan: Report Reviewed
ECG: Report Reviewed and Image Reviewed
[2024-04-09 03:41] VITALS: BP 166/84
[2024-04-09 03:45] VITALS: BP 166/71
[2024-04-09 04:04] VITALS: BMI 24.8
[2024-04-09 04:32] LABS: Blood Urea Nitrogen 15 mg/dl (9-20); Calcium 8.3 mg/dl (8.4-10.2); Carbon Dioxide 23 mmol/L (22-30); Chloride 100 mmol/L (98-107); Estimated Creatinine Clearance 92 ml/min; Glucose 104 mg/dl (70-99); Sodium 130 mmol/L (135-145); eGFR > 60.00
[2024-04-09 06:44] VITALS: BP 134/53
[2024-04-09] MEDS: SODIUM CHLORIDE 2 GRAM PO (08:49)
[2024-04-09] MEDS: TOPROL XL 100 MG PO (08:49)
[2024-04-09] MEDS: OSCAL 500 + D 500 MG PO (08:49)
[2024-04-09] MEDS: ELIQUIS 5 MG PO (08:50)
[2024-04-09] MEDS: LIPITOR 40 MG PO (08:50)
[2024-04-09] MEDS: FLOMAX 0.4 MG PO (08:50)
[2024-04-09] MEDS: ASPIR LOW (ENTERIC COATED) 81 MG PO (08:51)
[2024-04-09 10:40] VITALS: BP 113/63
--- NOTE | 2024-04-09 14:15 | PTCARENOTE ---
Pt received this am alert and oriented. OOB with 1 assist and the walker. Gait steady. Voided 300ml clear layo urine. Denies any pain or discomfort. Pt discharged to home with his . Discharge instructions given and reviewed with pt and his
. Pt and verbalize complete understanding of instructions and all questions answered. Rhythm star monitor placed on pt and reviewed with pt and his .
== END 2024-04-09 14:15 | disposition home or self-care (01) | DRG 266 ==
LOC: IVU 05:23
PROVIDERS: Nurse Practitioner; Physician Assistant Medical; ADMITTING PHYSICIAN Thoracic Surgery (Cardiothoracic Vascular Surgery); CONSULT PHYSICIAN Psychiatry & Neurology Neurology; CONSULT PHYSICIAN Psychiatry & Neurology Psychiatry; FAMILY PHYSICIAN Nurse Practitioner Family
PROC: 02RF38Z Replacement of Aortic Valve with Zooplastic Tissue, Percutaneous Approach (ICD-10-PCS; 2024-04-02)
DX: I35.0 Nonrheumatic aortic (valve) stenosis (principal); G92.8 Other toxic encephalopathy; I50.43 Acute on chronic combined systolic (congestive) and diastolic (congestive) heart failure; I63.89 Other cerebral infarction; E87.1 Hypo-osmolality and hyponatremia; I97.820 Postprocedural cerebrovascular infarction following cardiac surgery; R47.01 Aphasia; F05 Delirium due to known physiological condition; I25.10 Atherosclerotic heart disease of native coronary artery without angina pectoris; I11.0 Hypertensive heart disease with heart failure; I48.0 Paroxysmal atrial fibrillation; I87.2 Venous insufficiency (chronic) (peripheral); I83.92 Asymptomatic varicose veins of left lower extremity; I65.22 Occlusion and stenosis of left carotid artery; E78.00 Pure hypercholesterolemia, unspecified; R09.89 Other specified symptoms and signs involving the circulatory and respiratory systems; F41.9 Anxiety disorder, unspecified; R25.1 Tremor, unspecified; Y83.2 Surgical operation with anastomosis, bypass or graft as the cause of abnormal reaction of the patient, or of later complication, without mention of misadventure at the time of the procedure; R33.9 Retention of urine, unspecified; I44.0 Atrioventricular block, first degree; I44.7 Left bundle-branch block, unspecified; Z78.1 Physical restraint status; Z79.01 Long term (current) use of anticoagulants; Z79.82 Long term (current) use of aspirin; Z79.899 Other long term (current) drug therapy; Z90.49 Acquired absence of other specified parts of digestive tract
CPT/HCPCS: 93308; 33361; 36415; 70450; 70496; 70498; 70551; 71045; 71046; 76937; 80048; 80053; 80061; 81003; 81015; 82248; 82962; 82977; 83036; 83735; 83880; 85025; 85027; 85347; 85610; 85730; 86850; 86900; 86901; 86920; 87070; 93005; 93306; 93321; 93325; 95816; 97116; 97163; 97167; 97530; 97535; C1760; C1769; C1894; Q9967